=== PATIENT | male | born 1975 | race Caucasian/White ===

== ENCOUNTER 2016-12-18 05:46 | Emergency (ER) | payer MEDICAID ==
--- NOTE | 2016-12-18 05:52 | EDPHY ---
H & P Time Seen by Provider: 12/18/16 05:49 HPI/ROS: Chief Complaint: Alcohol intoxication, vomiting HPI: 41-year-old [place] Patient passed out after vomiting. Was unable to ambulate on their own. Patient brought in by EMS for further evaluation. No obvious signs of trauma per EMS. Remainder of history is unobtainable secondary to the patient's intoxication. ROS: Unobtainable secondary to the patient's intoxication PMH: Bipolar disorder Medications: Noncompliant Allergies: Unknown Social History: Positive for alcohol Family History: non-contributory Physical Exam: Gen: Somnolent, responds to painful stimuli, maintaining airway, smells of alcohol and emesis HEENT: Atraumatic Nose: no epistaxis or deformity Eyes: PERRLA, EOMI Mouth: Moist mucosa Neck: Supple, no step-offs or deformity Chest: Atraumatic, lungs clear to auscultation Heart: S1, S2 normal, no murmur Abd: Soft, non-tender, no guarding Back: Atraumatic Ext: no edema, atraumatic Skin: no rash Neuro: Sensation grossly intact, Strength 5/5 in bilateral upper and lower extremities - Medical/Surgical History Hx Asthma: No Hx Chronic Respiratory Disease: No Hx Diabetes: No Hx Cardiac Disease: No Hx Renal Disease: No Hx Cirrhosis: No Hx Alcoholism: Yes Hx HIV/AIDS: No Hx Splenectomy or Spleen Trauma: No Other PMH: ETOH ABUSE, BIPOLAR, schizophrenia, add, depression, chronic back pain, hep c - Social History Smoking Status: Current every day smoker Allergies/Adverse Reactions: quetiapine fumarate [From Seroquel] Allergy (Verified 06/24/16 03:22) trazodone Allergy (Verified 06/24/16 03:22) Home Medications: Medication Instructions Recorded clonAZEPAM [Klonopin] 1 mg PO 03/09/16 Acetaminophen [Arthritis Pain 1,300 mg PO TID PRN #30 tablet.er 04/16/16 Relief] Ibuprofen [Motrin (*)] 800 mg PO TID #21 tab 04/16/16 GABAPENTIN 06/24/16 [place] Carbonate 06/24/16 Risperidone 06/24/16 Medical Decision Making ED Course/Re-evaluation: Patient is now awake and appropriate. Ambulating unassisted to the bathroom. No current complaints. No further vomiting. Medically cleared for the [facility] Departure - Departure Disposition: Home, Routine, Self-Care Clinical Impression: Alcoholic intoxication Condition: Good Instructions: Alcohol Intoxication (ED) Additional Instructions: Please avoid binge drinking alcohol. Referrals: Patient,NotPresent [Primary Care Provider] - As per Instructions
[2016-12-18 05:56] VITALS: BP 110/81; PULSE 91; RESP 18; TEMP 97.9; O2SAT 94
== END 2016-12-18 06:00 | disposition home or self-care (01) ==
LOC: EDUNIT#
DX: F10.129 Alcohol abuse with intoxication, unspecified (principal); F17.200 Nicotine dependence, unspecified, uncomplicated

== ENCOUNTER 2016-12-29 20:39 | Emergency (ER) | payer MEDICAID ==
[2016-12-29 20:49] VITALS: BP 113/73; PULSE 85; RESP 18; TEMP 98.4; O2SAT 97
--- NOTE | 2016-12-29 21:28 | EDPHY ---
H & P Time Seen by Provider: 12/29/16 21:24 HPI/ROS: CHIEF COMPLAINT: Alcohol intoxication HISTORY OF PRESENT ILLNESS: This patient is a 41-year-old male with history of alcohol abuse who presents to the Emergency Department via [facility] and EMS under [facility] hold for acute alcohol intoxication. He admits to drinking excessively and smoking marijuana tonight. He reports nausea but has no other complaints. He denies recent infection or cough, cold, or fever. No additional pertinent medical history. REVIEW OF SYSTEMS: Constitutional: No fever Eyes: No drainage ENT: No sore throat Respiratory: No cough, no shortness of breath Cardiac: No chest pain Gastrointestinal: +nausea, no vomiting, no abdominal pain Genitourinary: no dysuria Musculoskeletal: No extremity injury or pain Skin: No rash Neurological: No headache Psychiatric: depression Past Medical/Surgical History: Alcohol abuse. Social History: Smokes daily. History of alcohol abuse. Smoking Status: Current every day smoker Physical Exam: General Appearance: Alert, intoxicated, slurred speech Eyes: Pupils equal and round, no conjunctival pallor or injection ENT, Mouth: Mucous membranes moist Neck: Normal inspection Respiratory: Lungs are clear to auscultation Cardiovascular: Regular rate and rhythm Gastrointestinal: Abdomen is soft and non- tender Neurological: A&O, nonfocal, steady gait Skin: Warm and dry Extremities: Normal inspection Psychiatric: Flat affect Constitutional: Initial Vital Signs Temperature (C) 36.9 C 12/29/16 20:47 Heart Rate 85 12/29/16 20:47 Respiratory Rate 18 12/29/16 20:47 Blood Pressure 113/73 12/29/16 20:47 O2 Sat (%) 97 12/29/16 20:47 O2 Delivery Mode Room Air Allergies/Adverse Reactions: No Known Allergies Allergy (Unverified 12/29/16 20:49) Home Medications: Medication Instructions Recorded clonAZEPAM [Klonopin] 1 mg PO 03/09/16 Acetaminophen [Arthritis Pain 1,300 mg PO TID PRN #30 tablet.er 04/16/16 Relief] Ibuprofen [Motrin (*)] 800 mg PO TID #21 tab 04/16/16 GABAPENTIN 06/24/16 [place] Carbonate 06/24/16 Risperidone 06/24/16 Risperidone 12/18/16 Seroquel 12/18/16 traZODone 12/18/16 Medical Decision Making ED Course/Re-evaluation: 41-year-old male with history of alcohol abuse presents acutely intoxicated under [facility] hold. He has no significant complaints. He has a normal exam and is able to ambulate appropriately. At this time, I feel that he is appropriate for discharge directly to the [facility]. He is given customary return precautions and will be discharged home in good conditions. Departure - Departure Disposition: Home, Routine, Self-Care Clinical Impression: Alcohol intoxication Condition: Good Instructions: Abuse of Alcohol (ED) Additional Instructions: Go directly to the [facility]. Return to the Emergency Department with uncontrollable vomiting, seizure, loss of consciousness, or for other serious concerns. Referrals: [facility] Detox 24 Hours [Outside] - As per Instructions Report Scribed for: Dalia Strong Report Scribed by: Radha Yancey Date of Report: 12/29/16 Time of Report: 21:25 Physician Review and Approval Statement: 12/29/16 21:25 Portions of this note were transcribed by a biomedical specialist. I personally performed a history, physical exam, medical decision making, and confirmed accuracy of information the transcribed note.
== END 2016-12-29 21:40 | disposition home or self-care (01) ==
LOC: EDUNIT#
DX: F10.129 Alcohol abuse with intoxication, unspecified (principal); F17.200 Nicotine dependence, unspecified, uncomplicated

== ENCOUNTER 2017-02-09 11:43 | Inpatient (IN) | payer MEDICAID ==
[2017-02-09] MEDS ORDERED: NS 1,000 ML IV ONE (12:04)
[2017-02-09] MEDS ORDERED: OXYCODONE/APAP 5/325 TAB PO ONE (12:08)
--- NOTE | 2017-02-09 14:21 | EDPHY ---
H & P Time Seen by Provider: 02/09/17 12:27 HPI/ROS: CHIEF COMPLAINT: Left ankle pain HISTORY OF PRESENT ILLNESS: 41-year-old homeless male presents to the emergency department by ambulance after he jumped off a ladder approximately 4 feet and twisted his left ankle. He complains of isolated pain to the left ankle. He was unable to walk and therefore ambulance was called for him. He complains of isolated pain to the left ankle. He admits to drinking alcohol today. He denies hitting his head or losing consciousness. Denies pain in his left knee or hip. Denies symptoms in the right lower extremity or upper extremities bilaterally. REVIEW OF SYSTEMS: Constitutional: No fever, no chills. Eyes: No double or blurry vision. ENT: No sore throat. Respiratory: No cough, no shortness of breath. Cardiac: No chest pain. Gastrointestinal: No abdominal pain, vomiting or diarrhea. Genitourinary: No dysuria. Musculoskeletal: No neck or back pain. Skin: No rashes. Neurological: No headache. Past Medical/Surgical History: Alcoholism, alcohol withdrawal seizures Social History: Homeless Smoking Status: Current every day smoker Physical Exam: General Appearance: Alert, no distress. No visible signs of trauma to his head. He does smell of alcohol. Eyes: Pupils equal and round. Extraocular motions are all intact. ENT: Mouth: Mucous membranes moist. Respiratory: No wheezing, rhonchi, or rales, lungs are clear to auscultation. Cardiovascular: Regular rate and rhythm. Gastrointestinal: Abdomen is soft and nontender, no masses, no rebound or guarding, bowel sounds normal. Neurological: Alert and oriented x 3, cranial nerves II through XII grossly intact Skin: Warm and dry, no rashes. Musculoskeletal: Nontender to palpate along the cervical, thoracic or lumbar spine. Neck is supple. Extremities: Swelling noted to the left ankle. Tenderness with palpation both to the medial and lateral aspect of the left ankle. Limited dorsi and plantar flexion secondary to pain. Calf is nontender. Normal sensation to light touch with normal 2 point discrimination. Strong dorsalis pedis pulse on the dorsal aspect of the left foot. No signs of puncture wound, laceration or signs of open fracture. Psychiatric: Patient is oriented X 3, there is no agitation. Constitutional: Initial Vital Signs Temperature (C) 37 C 02/09/17 11:47 Heart Rate 97 08/05/17 11:47 Blood Pressure 110/83 H 02/09/17 11:47 O2 Sat (%) 95 02/09/17 11:47 O2 Delivery Mode Room Air Allergies/Adverse Reactions: No Known Allergies Allergy (Unverified 12/29/16 20:49) Home Medications: Medication Instructions Recorded QUEtiapine FUMARATE [Seroquel 50 50 mg PO HS 02/09/17 mg (*)] Medical Decision Making - Diagnostics Imaging Results: Imaging Impressions Ankle X-Ray 02/09/17 12:26 Impression: Comminuted and displaced intra-articular distal left tibial fracture. Extremity CT 02/09/17 13:31 Impression: Complex bimalleolar ankle fracture with three-dimensional reformations performed for surgical planning. Imaging: I viewed and interpreted images myself ED Course/Re-evaluation: 41-year-old homeless male presents to the emergency department with left ankle injury. X-rays reveal distal tibial fracture which is likely intra-articular. I spoke with Dr. Prashant Chowdhury, on-call orthopedic surgeon, who reviewed the patient's films and requested CT scan of his left ankle. The patient is homeless and will have a great deal of difficulty nonweightbearing and management as an outpatient with this injury. I spoke with the hospitalist the patient will be admitted to the medical-surgical floor. Dr. Prashant Chowdhury did not feel that he would have surgery today. The patient was able to eat and drink in the emergency department and will be NPO after midnight. Patient does have a history of alcohol withdrawal related seizures. He is acutely intoxicated with alcohol. Dr. Prashant Chowdhury also felt the patient would require assistance from case management for arranging placement for nonweightbearing and wound care post surgery. The case was discussed with Dr. Dalia Strong, supervising physician, who did not directly evaluate the patient but agrees with treatment and plan. Differential Diagnosis: Including but not limited to fracture, dislocation, contusion, sprain - Data Points Laboratory Results: Laboratory Results 02/09/17 15:07 02/09/17 15:07 02/09/17 02/09/17 15:07 15:07 WBC 8.92 10^3/uL 10^3/uL (3.80-9.50) RBC 4.70 10^6/uL 10^6/uL (4.40-6.38) Hgb 15.1 g/dL g/dL (13.7-17.5) Hct 43.6 % % (40.0-51.0) MCV 92.8 fL fL (81.5-99.8) MCH 32.1 pg pg (27.9-34.1) MCHC 34.6 g/dL g/dL (32.4-36.7) RDW 15.4 % H % (11.5-15.2) Plt Count 301 10^3/uL 10^3/uL (150-400) MPV 9.8 fL fL (8.7-11.7) Neut % (Auto) 64.4 % % (39.3-74.2) Lymph % (Auto) 28.1 % % (15.0-45.0) Green % (Auto) 6.1 % % (4.5-13.0) Eos % (Auto) 0.4 % L % (0.6-7.6) Baso % (Auto) 0.6 % % (0.3-1.7) Nucleat RBC Rel Count 0.0 % % (0.0-0.2) Absolute Neuts (auto) 5.74 10^3/uL 10^3/uL (1.70-6.50) Absolute Lymphs (auto) 2.51 10^3/uL 10^3/uL (1.00-3.00) Absolute Monos (auto) 0.54 10^3/uL 10^3/uL (0.30-0.80) Absolute Eos (auto) 0.04 10^3/uL 10^3/uL (0.03-0.40) Absolute Basos (auto) 0.05 10^3/uL 10^3/uL (0.02-0.10) Absolute Nucleated RBC 0.00 10^3/uL 10^3/uL (0-0.01) Immature Gran % 0.4 % % (0.0-1.1) Immature Gran # 0.04 10^3/uL 10^3/uL (0.00-0.10) Sodium 146 mEq/L H mEq/L (134-144) Potassium 3.9 mEq/L mEq/L (3.5-5.2) Chloride 105 mEq/L mEq/L (97-110) Carbon Dioxide 22 mEq/l mEq/l (22-31) Anion Gap 19 mEq/L H mEq/L (8-16) BUN 6 mg/dL L mg/dL (7-23) Creatinine 0.6 mg/dL L mg/dL (0.7-1.3) Estimated GFR > 60 Glucose 136 mg/dL H mg/dL (70-100) Calcium 8.8 mg/dL mg/dL (8.5-10.4) Ethyl Alcohol 291 mg/dL H mg/dL (0-10) Medications Given: Discontinued Medications Morphine Sulfate (Morphine) 4 mg IVP EDNOW ONE Stop: 02/09/17 12:05 Last Admin: 02/09/17 12:26 Dose: Not Given Oxycodone/Acetaminophen (Percocet 5/325) 2 tab PO EDNOW ONE Stop: 02/09/17 12:09 Last Admin: 02/09/17 12:12 Dose: 2 tab Departure - Departure Disposition: [facility] Acute Clinical Impression: Closed left ankle fracture Qualifiers: Encounter type: initial encounter Qualified Code(s): S82.892A - Other fracture of left lower leg, initial encounter for closed fracture Condition: Good
[2017-02-09] MEDS ORDERED: ZOLPIDEM TARTRATE 5 MG TAB PO PRN (15:11)
[2017-02-09] MEDS ORDERED: ONDANSETRON 4 MG/2 ML VIAL IVP PRN (15:11)
--- NOTE | 2017-02-09 15:19 | PDGENHP ---
History and Physical History and Physical: CC:Ankle pain after fall HISTORY: The patient comes into the ER today complaining of left ankle pain after an injury. He says he was standing on an embankment about 4 feet high and jumped off that twisting his left ankle with immediate severe pain unable to stand or walk on it. There is no other injury. He has had x-rays done here in the ER today showing a bimalleolar distal tibial fracture. Prior to this the patient states he has mostly been feeling well although he did have some vomiting the last couple of days without fevers or abdominal pain and his bowels have been normal. is notable that the patient is homeless and is alcoholic. He says he drinks a gal of vodka per day plus few small liquors. This is chronic for him. His last drink was earlier today. He uses occasional marijuana and occasional math by insufflation, no history of narcotic use or intravenous drug use. He does have a history of mental health disease and has previously been chronically prescribed newer generation antipsychotic medicines as well as benzodiazepine. He says he last had Seroquel in early January and his other medicines several weeks before that. He states he feels that his lungs he has an of alcohol does not usually feel like he needs his medications. He does smoke cigarettes as well. 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 Substance abuse as above Has worked with [facility] but has not seen them recently. MEDICATIONS: Medications as above, no medicine allergies PHYSICAL EXAMINATION: Vital Signs: stable without fever Examination: General: alert, oriented, good mentation, relaxed, no tremor or confusion or anxiety with his left leg in splint from toes to above the knee ; he has good circulation in the toes and normal sensation, moves his toes normally No sign of other injuries Skin: warm, dry, good color, no rash HEENT: normal Neck: no mass or jvd Resps: relaxed Lungs: clear breath sounds Heart: regular, no murmur Abdomen: soft, nondistended, nontender, +BS, no mass Upper Extremities: normal Neurologic: normal speech/language, normal instructor psychiatric aide, no focal weakness IV site: looks normal LABORATORY DATA: laboratory studies have been ordered in the ER her still pending RADIOLOGY STUDIES: I reviewed x-ray images of his left ankle which show comminuted distal tibial fracture on the left ASSESSMENT: -Comminuted bimalleolar left ankle fracture will require surgical repair -Alcoholism. At this time the patient is not withdrawing and it would be best I think at this time to avoid alcohol withdrawal as I do not think he will be able to stop drinking. Will continue giving him some alcohol and some benzodiazepine here as well as thiamine replacement. -Substance abuse with occasional meth and marijuana but no IV drug use -Mental health disorder, I suspect is probably schizophrenia but I do not have records here at this time PLANS: - admission hospital -Orthopedics consultation -DVT prophylaxis -He is agreeing to resume his Seroquel at this time -Nicotine patch -Electrolyte protocols -Will continue some alcohol on some Librium here in the hospital and try and avoid alcohol withdrawal for him as I do not think he is likely be able stop drinking and I expect any withdrawal would be severe and high risk I have reviewed the patient's case in detail with Anabela Carson of the ER
[2017-02-09 15:26] LABS: % IMMATURE GRANULYOCYTES 0.4 % (0.0-1.1); ABSOLUTE IMMATURE GRANULOCYTES 0.04 10^3/uL (0.00-0.10); ADD DIFF? NO; ADD MORPH? NO; ADD SCAN? NO; ATYPICAL LYMPHOCYTE FLAG 0 (0-99); FRAGMENT RBC FLAG 0 (0-99); HEMATOCRIT 43.6 % (40.0-51.0); HEMOGLOBIN 15.1 g/dL (13.7-17.5); LEFT SHIFT FLG 0 (0-99); LIPEMIA HEMOLYSIS FLAG 90 (0-99); MEAN CELL HEMOGLOBIN 32.1 pg (27.9-34.1); MEAN CELL HEMOGLOBIN CONCENTR. 34.6 g/dL (32.4-36.7); MEAN CELL VOLUME 92.8 fL (81.5-99.8); MEAN PLATELET VOLUME 9.8 fL (8.7-11.7); PLATELET CLUMPS FLAG 10 (0-99); PLATELET COUNT 301 10^3/uL (150-400); RED CELL DISTRIBUTION WIDTH 15.4 % (11.5-15.2)
[2017-02-09 15:29] LABS: ANION GAP 19 mEq/L (8-16); CALCIUM 8.8 mg/dL (8.5-10.4); CARBON DIOXIDE 22 mEq/l (22-31); CHLORIDE 105 mEq/L (97-110); CREATININE 0.6 mg/dL (0.7-1.3); ETHANOL SERUM 291 mg/dL (0-10); GLOMERULAR FILTRATION RATE > 60; GLUCOSE 136 mg/dL (70-100); POTASSIUM 3.9 mEq/L (3.5-5.2); SODIUM 146 mEq/L (134-144)
[2017-02-09] MEDS ORDERED: PROTOCOL MAGNESIUM 1 DOSE IV PRN (15:34)
[2017-02-09] MEDS ORDERED: PROTOCOL POTASSIUM 1 DOSE MISC PRN (15:34)
[2017-02-09] MEDS: THIAMINE HCL 100 MG TAB PO SCH (16:04)
[2017-02-09] MEDS: NICOTINE 21 MG/24 HR PATCH TD SCH (16:04)
[2017-02-09] MEDS: VODKA 50 ML BOTTLE PO SCH ×2 (16:05→21:49)
[2017-02-09] MEDS: ACETAMINOPHEN 325 MG TAB PO PRN (17:08)
[2017-02-09] MEDS: oxyCODONE IR 5 MG TAB PO PRN ×2 (17:09→23:07)
[2017-02-09 18:28] LABS: POTASSIUM 4.2 mEq/L (3.5-5.2)
--- NOTE | 2017-02-09 19:59 | GCON ---
[f rep st] CONSULTATION DATE OF CONSULTATION: 02/09/2017 REASON FOR CONSULTATION: Left ankle injury. HISTORY OF PRESENT ILLNESS: The patient is a 41-year-old, who jumped down approximately 4 feet land ing on his left ankle. He noted pain and inability to ambulate secondary to his pain. PHYSICAL EXAMINATION: He has moderate swelling in his left ankle. He is able to gently flex and ex tend. His distal neurovascular exam was grossly intact. IMAGING STUDIES: AP and lateral radiographs of his ankle as well as a CT scan show a distal tibial pilon fracture. ASSESSMENT: Left tibial pilon fracture. PLAN: Based on the displaced intra-articular nature of the ankle, it is recommended that optimal tr eatment would consist of surgical management consisting of open reduction, internal fixation. Curre ntly the patient is homeless and at the time of presentation inebriated. There is significant kandi rn that if the patient does not have an adequate housing situation post surgery, the risk of infecti on, potentially resulting in a below-knee amputation is significant. Additionally, nonoperative man agement with resultant ankle arthritis and subsequent salvage with an ankle fusion would be a better result than a below-knee amputation. As soon as the patient's social situation can be confirmed to be "stable" and he will be able to be compliant with postoperative regimen, operative treatment con sisting of open reduction, internal fixation will be recommended. /[id number]/MODL
[2017-02-09] MEDS: QUEtiapine FUMARATE 50 MG TAB PO SCH (20:26)
[2017-02-09] MEDS ORDERED: QUEtiapine FUMARATE 100 MG TAB PO SCH (21:00)
[2017-02-10 05:35] LABS: CHLORIDE 105 mEq/L (97-110)
[2017-02-10 05:37] LABS: ANION GAP 11 mEq/L (8-16); CALCIUM 8.5 mg/dL (8.5-10.4); CARBON DIOXIDE 24 mEq/l (22-31); CREATININE 0.6 mg/dL (0.7-1.3); GLOMERULAR FILTRATION RATE > 60; GLUCOSE 79 mg/dL (70-100); MAGNESIUM 1.6 mg/dL (1.6-2.3); POTASSIUM 3.9 mEq/L (3.5-5.2); SODIUM 140 mEq/L (134-144)
[2017-02-10] MEDS: THIAMINE HCL 100 MG TAB PO SCH (07:43)
[2017-02-10] MEDS: oxyCODONE IR 5 MG TAB PO PRN ×4 (07:43→20:35)
[2017-02-10] MEDS: ACETAMINOPHEN 325 MG TAB PO PRN ×3 (07:43→22:03)
[2017-02-10] MEDS: ENOXAPARIN 40 MG/0.4 ML SYR SC SCH (07:44)
[2017-02-10] MEDS: NICOTINE 21 MG/24 HR PATCH TD SCH (07:44)
[2017-02-10] MEDS ORDERED: POTASSIUM CL 10 MEQ TAB PO ONE (08:05)
[2017-02-10] MEDS: VODKA 50 ML BOTTLE PO SCH ×3 (08:43→22:03)
--- NOTE | 2017-02-10 09:08 | HOSPPROG ---
Hospitalist Progress Note Assessment/Plan: 1. L tibial pilon fracture -appreciate Dr Chowdhury's assistance -needs ORIF but stable envt to recuperate -if no ORIF, still needs stable envt -will review options with SW/CM, ? SNF vs NH vs inpt psych or phys med rehab 2. Alcoholism. -given low dose alcohol to prevent withdrawal -need to stop EtOH in prep for surgery, recuperation -will need mental health support, supportive envt- see above 3. Substance abuse with occasional meth and marijuana but no IV drug use 4. Mental health disorder -possible transfer to inpatient psych as an option for post op time? DVT prophy- lovenox (will need to stop prior to ORIF) PCP- has seen [facility], but not recently Dispo- > 2 mdnts as still awaiting possible surgical repair Subjective: Says still in significant pain. Denies n/v/d/cp/sob. Objective: Vital Signs Temp Pulse Resp BP Pulse Ox 98.2 F 78 18 128/88 H 98 02/10/17 07:27 02/10/17 07:27 02/10/17 07:27 02/10/17 07:27 02/10/17 07:27 Laboratory Results 02/10/17 05:06 02/08/17 02/09/17 02/10/17 11:59 11:59 11:59 Intake Total 450 Output Total 1050 Balance -600 - Time Spent With Patient Time Spent with Patient: greater than 35 minutes Time Spent with Patient: Greater than 35 minutes spent on this patients care, greater than 50% of time spent counseling, educating, and coordinating care regarding the above mentioned plan. - Physical Exam Constitutional: no apparent distress, appears nourished, uncomfortable Eyes: PERRL, anicteric sclera, EOMI Ears, Nose, Mouth, Throat: moist mucous membranes, hearing normal Cardiovascular: regular rate and rhythym, no murmur, rub, or gallop Respiratory: no respiratory distress, no rales or rhonchi, clear to auscultation Skin: warm, normal color Musculoskeletal: other (LLE in splint, cap refill < 2 secs) Psychiatric: interacting appropriately, not anxious, not encephalopathic ICD10 Worksheet Patient Problems: Problems Problem Status Onset Closed left ankle fracture Acute Alcoholic intoxication Acute
--- NOTE | 2017-02-10 13:39 | SOAPPROG ---
SOAP Progress Note Assessment/Plan: Assessment: L tibial pilon fx Pain in ankle Kristina po Overall better appearance today Splint intact, appropriate fit Toes 1-5 with good cap refill. +DF/PF Plan: Fx best treated with ORIF. Patient needs post op dispo that will allow for safe healing environment. I fthis can be arranged, will plan ORIF on Saturday02/10/17 13:36 Objective: Vital Signs Temp Pulse Resp BP Pulse Ox 36.8 C 84 16 117/71 94 02/10/17 11:40 02/10/17 11:40 02/10/17 11:40 02/10/17 11:40 02/10/17 11:40 Laboratory Results 02/10/17 05:06 02/09/17 02/10/17 02/11/17 05:59 05:59 05:59 Intake Total 450 Output Total 1050 350 Balance -600 -350 ICD10 Worksheet Patient Problems: Problems Problem Status Onset Closed left ankle fracture Acute Alcoholic intoxication Acute
[2017-02-10] MEDS ORDERED: MAGNESIUM SULF 1 GM/DEXTROSE 100 ML IV ONE (15:03)
[2017-02-10] MEDS: chlordiazePOXIDE 25 MG CAP PO PRN ×2 (16:46→22:03)
[2017-02-10 18:47] LABS: POTASSIUM 4.2 mEq/L (3.5-5.2)
[2017-02-10] MEDS: QUEtiapine FUMARATE 50 MG TAB PO SCH (22:03)
[2017-02-11 05:31] LABS: MAGNESIUM 2.1 mg/dL (1.6-2.3); POTASSIUM 4.7 mEq/L (3.5-5.2)
[2017-02-11] MEDS ORDERED: MAG HYDROX/AL HYDROX/SIMETH 30 ML UDCUP PO PRN (06:48)
[2017-02-11] MEDS ORDERED: PROMETHAZINE HCL 25 MG TAB PO PRN (06:48)
[2017-02-11] MEDS ORDERED: MAGNESIUM SULF 2 GM/WATER 50 ML IV ONE (06:48)
[2017-02-11] MEDS: ENOXAPARIN 40 MG/0.4 ML SYR SC SCH (08:34)
[2017-02-11] MEDS: THIAMINE HCL 100 MG TAB PO SCH (08:34)
[2017-02-11] MEDS: MULTIVITAMINS 1 EACH TAB PO SCH (08:34)
[2017-02-11] MEDS: FOLIC ACID 1 MG TAB PO SCH (08:34)
[2017-02-11] MEDS: NICOTINE 21 MG/24 HR PATCH TD SCH (08:35)
[2017-02-11] MEDS: LORazepam 1 MG TAB PO SCH ×4 (08:49→23:39)
[2017-02-11] MEDS: oxyCODONE IR 5 MG TAB PO PRN ×3 (08:50→23:39)
[2017-02-11] MEDS ORDERED: DIAZEPAM 10 MG TAB PO ONE (10:57)
[2017-02-11] MEDS: LORazepam 1 MG TAB PO PRN ×2 (11:19→20:30)
--- NOTE | 2017-02-11 11:25 | HOSPPROG ---
Hospitalist Progress Note Assessment/Plan: 1. L tibial pilon fracture -appreciate Dr Chowdhury's assistance -needs ORIF but stable envt to recuperate -if no ORIF, still needs stable envt -discussed with SW/CM 2. Alcoholism. -given low dose alcohol to prevent withdrawal initially during this stay -need to stop EtOH in prep for surgery, recuperation -he initially seemed OK with this plan, but becoming more aggressive, has bipolar which he medicates 'with whatever he can', admits to violent tendencies , and says he 'may hurt someone' if he 'doesn't get a f--ing drink and a cigarette' -placed on M1 hold and transfer to ICU, Dr Salcido will assume care -will need mental health support, supportive envt during recuperation 3. Substance abuse with occasional meth and marijuana -no utox was done at admission, was acutely drunk at admission -see above 4. Mental health disorder -possible transfer to inpatient psych after medically cleared (+- surgery on ankle) DVT prophy- lovenox (will need to stop prior to ORIF) PCP- has seen [facility], but not recently Dispo- > 2 mdnts as still awaiting possible surgical repair Subjective: Very upset about stopping etoh. Explained need to detox in anticipation of surgery. Discussed ativan dosing. Seemed OK with plan, but then became very agitated, yelling, cursing, threatening to leave later in the morning. Objective: Vital Signs Temp Pulse Resp BP Pulse Ox 98.3 F 92 12 125/80 H 94 02/11/17 07:42 02/11/17 07:42 02/11/17 07:42 02/11/17 07:42 02/11/17 07:42 Laboratory Results 02/11/17 04:29 02/09/17 02/10/17 02/11/17 11:59 11:59 11:59 Intake Total 450 500 Output Total 1400 8995 Balance -335 -8900 - Time Spent With Patient Time Spent with Patient: greater than 35 minutes Time Spent with Patient: Greater than 35 minutes spent on this patients care, greater than 50% of time spent counseling, educating, and coordinating care regarding the above mentioned plan. - Pending Discharge Pending Discharge Within 24 Hours: No Pending Discharge Within 48 Hours: No - Physical Exam Constitutional: chronically ill appearing, unkempt Cardiovascular: regular rate and rhythym, no murmur, rub, or gallop Respiratory: no respiratory distress, no rales or rhonchi, clear to auscultation Musculoskeletal: other (L lower leg in splint) Psychiatric: agitated, poor insight, poor judgement, poor memory ICD10 Worksheet Patient Problems: Problems Problem Status Onset Closed left ankle fracture Acute Alcoholic intoxication Acute
[2017-02-11] MEDS ORDERED: DIAZEPAM 5 MG TAB PO ONE (11:30)
[2017-02-11] MEDS ORDERED: QUEtiapine FUMARATE 50 MG TAB PO ONE (11:46)
[2017-02-11] MEDS: LORazepam 2 MG/ML INJ IVP PRN (11:57)
[2017-02-11] MEDS: clonazePAM 1 MG TAB PO SCH ×2 (12:11→19:52)
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
[2017-02-11] MEDS: QUEtiapine FUMARATE 50 MG TAB PO SCH (20:02)
[2017-02-12] MEDS: LORazepam 1 MG TAB PO PRN ×2 (03:20→08:27)
[2017-02-12] MEDS: oxyCODONE IR 5 MG TAB PO PRN ×4 (03:20→21:29)
[2017-02-12 05:47] LABS: % IMMATURE GRANULYOCYTES 0.2 % (0.0-1.1); ABSOLUTE IMMATURE GRANULOCYTES 0.01 10^3/uL (0.00-0.10); ADD DIFF? NO; ADD MORPH? NO; ADD SCAN? NO; ATYPICAL LYMPHOCYTE FLAG 20 (0-99); FRAGMENT RBC FLAG 0 (0-99); HEMATOCRIT 40.4 % (40.0-51.0); HEMOGLOBIN 14.1 g/dL (13.7-17.5); LEFT SHIFT FLG 0 (0-99); LIPEMIA HEMOLYSIS FLAG 90 (0-99); MEAN CELL HEMOGLOBIN 32.2 pg (27.9-34.1); MEAN CELL HEMOGLOBIN CONCENTR. 34.9 g/dL (32.4-36.7); MEAN CELL VOLUME 92.2 fL (81.5-99.8); PLATELET CLUMPS FLAG 0 (0-99); PLATELET COUNT 200 10^3/uL (150-400); RED BLOOD CELL COUNT 4.38 10^6/uL (4.40-6.38); RED CELL DISTRIBUTION WIDTH 14.3 % (11.5-15.2)
[2017-02-12 06:01] LABS: ANION GAP 10 mEq/L (8-16); CALCIUM 9.1 mg/dL (8.5-10.4); CARBON DIOXIDE 24 mEq/l (22-31); CHLORIDE 101 mEq/L (97-110); CREATININE 0.6 mg/dL (0.7-1.3); GLOMERULAR FILTRATION RATE > 60; GLUCOSE 97 mg/dL (70-100); MAGNESIUM 1.7 mg/dL (1.6-2.3); POTASSIUM 4.3 mEq/L (3.5-5.2); SODIUM 135 mEq/L (134-144)
[2017-02-12] MEDS: LORazepam 1 MG TAB PO SCH ×4 (06:20→19:57)
[2017-02-12] MEDS: ENOXAPARIN 40 MG/0.4 ML SYR SC SCH (08:19)
[2017-02-12] MEDS: NICOTINE 21 MG/24 HR PATCH TD SCH (08:26)
[2017-02-12] MEDS: THIAMINE HCL 100 MG TAB PO SCH (08:27)
[2017-02-12] MEDS: MULTIVITAMINS 1 EACH TAB PO SCH (08:27)
[2017-02-12] MEDS: FOLIC ACID 1 MG TAB PO SCH (08:27)
[2017-02-12] MEDS: clonazePAM 1 MG TAB PO SCH ×2 (08:27→19:56)
[2017-02-12] MEDS ORDERED: HALOPERIDOL LACT 5 MG/ML INJ IVP PRN (09:37)
[2017-02-12] MEDS ORDERED: MAGNESIUM SULF 1 GM/DEXTROSE 100 ML IV ONE (09:37)
--- NOTE | 2017-02-12 09:44 | PDINTPN ---
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 Alcohol abuse/withdrawal: Improved over the last 24 hours with clonazepam and Seroquel, and some IV Ativan. He has expressed an interest in stopping alcohol abuse. Tobacco abuse: Withdrawal symptoms improved with increased nicotine patch Plan: Decreased clonazepam and increased p.r.n. Ativan. NPO for surgery today. Begin to work on discharge planning to arrange for safe environment for him to try to withdraw from alcohol and recover from ankle surgery. 02/12/17 09:44 Subjective: Patient slept well last night. Still feels some alcohol withdrawal, with tremors. Complains of pain in left ankle. Objective: Vital Signs Temp Pulse Resp BP Pulse Ox 36.8 C 88 16 106/65 96 02/12/17 04:00 02/12/17 08:00 02/12/17 08:00 02/12/17 08:00 02/12/17 08:00 Laboratory Results 02/12/17 05:30 02/12/17 05:30 02/11/17 02/12/17 02/13/17 05:59 05:59 05:59 Intake Total 500 500 Output Total 2100 700 Balance -1600 -200 Physical Exam - Physical Exam General Appearance: alert, no apparent distress EENT: normal ENT inspection Neck: normal inspection Respiratory: lungs clear, normal breath sounds Cardiac/Chest: regular rate, rhythm, No edema Abdomen: normal bowel sounds, non-tender Skin: normal color, warm/dry Extremities: normal inspection Neuro/Psych: alert, other (Mild tremor.), No normal mood/affect (A bit sedated) , No motor weakness ICD10 Worksheet Patient Problems: Problems Problem Status Onset Closed left ankle fracture Acute Alcoholic intoxication Acute
[2017-02-12] MEDS: LORazepam 2 MG/ML INJ IVP PRN ×3 (11:33→21:27)
[2017-02-12] MEDS ORDERED: MIDAZOLAM 2 MG/2 ML VIAL ONE (12:49)
[2017-02-12] MEDS ORDERED: BUPIVACAINE 0.5% 30 ML SDV ONE (14:01)
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
[2017-02-12] MEDS ORDERED: OXYCODONE/APAP 5/325 TAB PO PRN (14:40)
[2017-02-12] MEDS ORDERED: ONDANSETRON 4 MG/2 ML VIAL IVP PRN (14:40)
[2017-02-12] MEDS ORDERED: HYDROmorphONE/DILAUDID 1 MG/ML SYR IVP PRN ×2 (14:40)
[2017-02-12] MEDS ORDERED: HYDROCODONE/APAP 5/325 TAB PO PRN (14:40)
[2017-02-12] MEDS ORDERED: fentaNYL 100 MCG/2 ML INJ IVP PRN ×2 (14:40)
[2017-02-12] MEDS ORDERED: NALOXONE HCL 0.4 MG/ML INJ IVP PRN (14:40)
--- NOTE | 2017-02-12 14:45 | PDANEPAE ---
ANE History of Present Illness Left Ankle FX ORIF ANE Past Medical History - Pulmonary History Hx Oxygen in Use at Home: No Hx Sleep Apnea: No - Endocrine History Hx Diabetes: No - Chronic Pain History Chronic Pain: Yes ANE Patient History - Allergies Allergies/Adverse Reactions: No Known Allergies Allergy (Unverified 12/29/16 20:49) - Home Medications Home Medications: QUEtiapine FUMARATE [Seroquel 50 mg (*)] 50 mg PO HS 02/09/17 [Last Taken ] - Smoking Hx Smoking Status: Current every day smoker ANE Labs/Vital Signs - Labs Result Diagrams: 02/12/17 05:30 02/12/17 05:30 - Vital Signs Blood Pressure: 108/76 Heart Rate: 88 Respiratory Rate: 16 O2 Sat (%): 97 Height: 182.88 cm Weight: 74.843 kg ANE Physical Exam - Airway Neck exam: FROM Mallampati Score: Class 2 Mouth exam: poor dentition - Pulmonary Pulmonary: clear to auscultation - Cardiovascular Cardiovascular: regular rate and rhythym - ASA Status ASA Status: II ANE Anesthesia Plan Anesthesia Plan: GA w LMA
--- NOTE | 2017-02-12 15:36 | POSTOPPROG ---
Post Op Note Date of Operation: 02/12/17 Surgeon: Prashant Chowdhury Anesthesia: GET(General Endotracheal) Pre-op Diagnosis: L Tibial Pilon Fx Post-op Diagnosis: Same Procedure: ORIF L Tibial pilon fx Inf/Abcess present in the surg proc area at time of surgery?: No EBL: Minimal
--- NOTE | 2017-02-12 15:36 | POSTANESTH ---
Post Anesthetic Evaluation Cardiovascular Status: Normal, Stable Respiratory Status: Normal, Stable Level of Consciousness/Mental Status: Mildly Sleepy, Arousable Pain Control: Adequate, Prn Tx Ordered Nausea/Vomiting Control: Adequate, Prn Tx Ordered Complications Possibly Related to Anesthesia: None Noted
[2017-02-12] MEDS ORDERED: D5W 1/2 NS W/ 20 KCl/L 1,000 ML IV SCH (15:45)
--- NOTE | 2017-02-12 18:28 | GOP ---
[f rep st] OPERATIVE REPORT DATE OF OPERATION: 02/12/2017 SURGEON: Prashant Chowdhury MD ANESTHESIA: General. PREOPERATIVE DIAGNOSIS: Left tibial pilon fracture. POSTOPERATIVE DIAGNOSIS: Left tibial pilon fracture. PROCEDURE PERFORMED: 1. Open reduction, internal fixation, left tibial pilon fracture. 2. Intraoperative use of fluoroscopy. FINDINGS: ESTIMATED BLOOD LOSS: Negligible.lost DESCRIPTION OF PROCEDURE: Patient was brought in the operating room after IV antibiotics were admin istered. He was placed in a supine position where general anesthetic was administered. Tourniquet was placed on his left thigh, bump underneath the left hip and shoulder, and his left lower extremit y was prepped and draped in standard sterile fashion. After Giovanny wrap exsanguination, tourniquet was inflated to 250. Attention was initially directed toward the posterior fragment. Under fluoroscop ic guidance, a K-wire was inserted percutaneously at the level of the fracture site. A small incisi on was made with dissection down to the posterior aspect of the tibia and the interval between the p eroneal and flexor hallucis longus tendons. A 2.5 mm Schanz pin was inserted in the bone where the bone was "joysticked" into a more reduced position and reduced. The guide pin was advanced. Using 2 small incisions, two 3.5 mm cortical screws were placed in lag fashion in a posterior to anterior direction across the fracture site. Favorable hardware placement and reduction was achieved. Attention was then directed toward the medial malleolar fracture. A Lucian wire was placed in th e medial aspect of the medial malleolus across the fracture site. A small stab incision was made do wn to the bone. Two 3.5 mm cortical screws were placed in lag fashion in a medial to lateral direct ion, gaining favorable purchase. The fluoroscopic views confirmed favorable hardware and fracture p ositions. Attention was finally directed toward the anterior lateral fragment. While ideally, open reduction with plate stabilization would have been considered, this was not felt to be safe from a wound heali ng standpoint. Under fluoroscopic guidance, a small incision was made along the anterior lateral ti alin. A partially threaded Schanz pin was inserted and the fracture was joysticked into a more reduc ed position. Through 2 small incisions, three 3.5 mm cortical screws were placed in lag fashion acr oss the fracture site. Fluoroscopic views confirmed satisfactory reduction and hardware placement. Attention was directed towards closure. The subcutaneous tissue was closed with 3-0 Vicryl suture i n interrupted fashion, the skin was closed with 3-0 chromic suture and Dermabond. The wounds were d ressed with sterile Adaptic, 4 x 4, and Kerlix and an Giovanny. The patient was placed in a fracture gregorio t. He will be nonweightbearing on his operative extremity. DRAINS: None. COMPLICATIONS: None. /[id number]/MODL
[2017-02-12] MEDS: QUEtiapine FUMARATE 50 MG TAB PO SCH (19:58)
[2017-02-12] MEDS: ceFAZolin 2 GM/DEXTROSE 100 ML IV SCH (21:24)
[2017-02-13] MEDS: oxyCODONE IR 5 MG TAB PO PRN ×2 (00:18→04:57)
[2017-02-13] MEDS: LORazepam 1 MG TAB PO SCH ×2 (00:18→04:58)
[2017-02-13] MEDS: ceFAZolin 2 GM/DEXTROSE 100 ML IV SCH (04:57)
[2017-02-13 05:02] VITALS: PULSE 102
[2017-02-13 05:27] LABS: % IMMATURE GRANULYOCYTES 0.2 % (0.0-1.1); ABSOLUTE IMMATURE GRANULOCYTES 0.02 10^3/uL (0.00-0.10); ADD DIFF? NO; ADD MORPH? NO; ADD SCAN? NO; ATYPICAL LYMPHOCYTE FLAG 0 (0-99); FRAGMENT RBC FLAG 0 (0-99); HEMATOCRIT 39.9 % (40.0-51.0); HEMOGLOBIN 14.2 g/dL (13.7-17.5); LEFT SHIFT FLG 0 (0-99); LIPEMIA HEMOLYSIS FLAG 90 (0-99); MEAN CELL HEMOGLOBIN 32.3 pg (27.9-34.1); MEAN CELL HEMOGLOBIN CONCENTR. 35.6 g/dL (32.4-36.7); MEAN CELL VOLUME 90.9 fL (81.5-99.8); PLATELET CLUMPS FLAG 0 (0-99); PLATELET COUNT 241 10^3/uL (150-400); RED BLOOD CELL COUNT 4.39 10^6/uL (4.40-6.38); RED CELL DISTRIBUTION WIDTH 13.8 % (11.5-15.2)
[2017-02-13 05:36] LABS: ANION GAP 12 mEq/L (8-16); CALCIUM 9.5 mg/dL (8.5-10.4); CARBON DIOXIDE 24 mEq/l (22-31); CHLORIDE 96 mEq/L (97-110); CREATININE 0.7 mg/dL (0.7-1.3); GLOMERULAR FILTRATION RATE > 60; GLUCOSE 118 mg/dL (70-100); MAGNESIUM 1.9 mg/dL (1.6-2.3); POTASSIUM 4.5 mEq/L (3.5-5.2); SODIUM 132 mEq/L (134-144)
--- NOTE | 2017-02-13 06:03 | SOAPPROG ---
SOAP Progress Note Assessment/Plan: Assessment: Percy rodriguez fx Pain in ankle Kristina po Overall better appearance today Splint intact, appropriate fit Toes 1-5 with good cap refill. +DF/PF Plan: Fx best treated with ORIF. Patient needs post op dispo that will allow for safe healing environment. I fthis can be arranged, will plan ORIF on Saturday02/10/17 13:36 02/13/17 05:59 S/P ORIF Percy Rodriguez Currently resting comfortably Having pain at ankle Toes 1-5 with good cap refill Able to flex/ext (limited) Plan: OOB/PT Should be non weight bearing x 6 wks OK for D/C from ortho surg standpoint. F/U would normally be in ~ 1 wk. However, all sutures are disolvable so if patient lost to follow up, no need for removable. Objective: Vital Signs Temp Pulse Resp BP Pulse Ox 36.8 C 102 H 12 119/77 95 02/13/17 04:00 02/13/17 04:00 02/13/17 04:00 02/13/17 04:00 02/13/17 04:00 Laboratory Results 02/13/17 05:10 02/13/17 05:10 02/11/17 02/12/17 02/13/17 05:59 05:59 05:59 Intake Total 620 783 1362 Output Total 2100 700 1630 Balance -1600 -200 150 ICD10 Worksheet Patient Problems: Problems Problem Status Onset Closed left ankle fracture Acute Alcoholic intoxication Acute
[2017-02-13] MEDS: clonazePAM 1 MG TAB PO SCH (08:01)
[2017-02-13] MEDS: MULTIVITAMINS 1 EACH TAB PO SCH (08:01)
[2017-02-13] MEDS: THIAMINE HCL 100 MG TAB PO SCH (08:01)
[2017-02-13] MEDS: ENOXAPARIN 40 MG/0.4 ML SYR SC SCH (08:02)
[2017-02-13] MEDS: FOLIC ACID 1 MG TAB PO SCH (08:02)
[2017-02-13] MEDS: NICOTINE 21 MG/24 HR PATCH TD SCH (08:04)
[2017-02-13 08:13] VITALS: BP 114/81; RESP 20; TEMP 98.6; O2SAT 93
[2017-02-13] MEDS: LORazepam 2 MG/ML INJ IVP PRN (08:16)
[2017-02-13] MEDS ORDERED: VODKA 50 ML BOTTLE PO SCH (10:15)
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
[2017-02-15] MEDS ORDERED: THIAMINE HCL 100 MG TAB PO SCH (09:00)
== END 2017-02-13 11:15 | disposition left against medical advice (07) | DRG 493 ==
LOC: EDUNIT# → EEVIPCON 15:11 → OBSVTOIN 15:11 → F3N 15:48 → F2N 02-11 11:36
PROVIDERS: ADMIT Internal Medicine; ATTEND Internal Medicine
PROC: 0SSG04Z Reposition Left Ankle Joint with Internal Fixation Device, Open Approach (ICD-10-PCS; principal; 2017-02-12 14:00)
DX: S82.842A Displaced bimalleolar fracture of left lower leg, initial encounter for closed fracture (principal); W17.89XA Other fall from one level to another, initial encounter; X50.1XXA Overexertion from prolonged static or awkward postures, initial encounter; F10.229 Alcohol dependence with intoxication, unspecified; F10.239 Alcohol dependence with withdrawal, unspecified; F17.210 Nicotine dependence, cigarettes, uncomplicated; F12.90 Cannabis use, unspecified, uncomplicated; F15.90 Other stimulant use, unspecified, uncomplicated; F31.9 Bipolar disorder, unspecified; F20.9 Schizophrenia, unspecified
CPT/HCPCS: 97162-GP; 97164-GP; 97165-GO; 97168-GO; C1713; G0480; J0690; J1650; J2060; J2250; J2405; J3475

== ENCOUNTER 2017-02-14 07:42 | Emergency (ER) | payer MEDICAID ==
[2017-02-14 07:54] VITALS: RESP 18; TEMP 98.6
--- NOTE | 2017-02-14 07:55 | EDPHY ---
H & P Time Seen by Provider: 02/14/17 07:45 HPI/ROS: CHIEF COMPLAINT: Left ankle pain recent surgery HISTORY OF PRESENT ILLNESS: The patient presents to the ED with acute left ankle pain following recent surgery. The patient has a history of bipolar mood disorder. He was hospitalized 4 days ago with a left ankle injury. The patient reportedly had surgery yesterday and left the hospital against medical advice. The patient stated he left because he needed to take care of some business. The patient returns today with intractable pain and concerns that he made a irrational decision yesterday. The patient states that he is unable to care for himself with his fracture and current homeless state. The patient reports he has fallen out of his wheelchair several times and reportedly re-injured his left ankle. The patient reports moderate pain to the extremity. He denies additional painful injury. The patient reports he has been taking Seroquel. The patient denies taking any regular medications. The patient does have a history of alcohol dependence. REVIEW OF SYSTEMS: A comprehensive 10 point review of systems is otherwise negative aside from elements mentioned in the history of present illness. Source: Patient Exam Limitations: No limitations - Medical/Surgical History Hx Asthma: No Hx Chronic Respiratory Disease: No Hx Diabetes: No Hx Cardiac Disease: No Hx Renal Disease: No Hx Cirrhosis: No Hx Alcoholism: Yes Hx HIV/AIDS: No Hx Splenectomy or Spleen Trauma: No Other PMH: ETOH ABUSE, BIPOLAR, schizophrenia, add, depression, chronic back pain, hep c - Social History Smoking Status: Current every day smoker - Physical Exam Exam: General Appearance: Alert, no distress Head: Atraumatic Eyes: Pupils equal, round, reactive ENT, Mouth: No hemotympanum, no oral trauma Neck: Nontender, trachea midline Respiratory: No chest wall tender, subcutaneous air, lungs clear bilaterally Cardiovascular: Regular rate and rhythm Abdomen: Abdomen is soft and nontender, pelvis stable Skin: No lacerations, No abrasion Back: No midline T/L/S pain Extremities: Tenderness to palpation left ankle, surgical incisions are clean dry and intact, expected postoperative mild ecchymotic changes noted Neurological: A&Ox3, normal motor function, normal sensory exam Constitutional: Initial Vital Signs Temperature (C) 37 C 02/14/17 07:45 Heart Rate 94 02/14/17 07:45 Respiratory Rate 18 02/14/17 07:45 Blood Pressure 120/69 02/14/17 07:45 O2 Sat (%) 97 02/14/17 07:45 O2 Delivery Mode Room Air Allergies/Adverse Reactions: trazodone Allergy (Intermediate, Verified 02/14/17 08:07) ?extrapyramidal sxs Home Medications: Medication Instructions Recorded NK [No Known Home Meds] 02/14/17 Medical Decision Making - Diagnostics Imaging Results: Imaging Impressions Ankle X-Ray 02/14/17 07:48 Impression: Postoperative changes of ORIF are noted. ED Course/Re-evaluation: The patient presents to the ED with complaints of acute left foot pain following a fall from his wheelchair. The patient's splint was taken down. There is no evidence of dehiscence or infection. It was redressed appropriately. The patient was taken for x-rays which demonstrate no evidence of an acute fracture. The patient did received 2 oral Percocet. I reviewed the patient's past medical records including his discharge assessment yesterday. Consultation was made with our high school social studies tutor at 10:00 a.m. to evaluate the patient's current disposition. At this point time, there are no resources available for the patient for rehabilitation. He does not meet criteria for SNF. The patient currently is in a wheelchair. The patient will be given a prescription for pain medication. He is advised to follow up with Dr. Chowdhury within the next week. Differential Diagnosis: Differential diagnosis considered includes fracture, sprain, dislocation - Data Points Medications Given: Discontinued Medications Oxycodone/Acetaminophen (Percocet 5/325) 2 tab PO EDNOW ONE Stop: 02/14/17 07:58 Last Admin: 02/14/17 08:01 Dose: 2 tab Departure - Departure Disposition: Home, Routine, Self-Care Clinical Impression: Closed left ankle fracture Condition: Good Instructions: Ankle Fracture (ED) Additional Instructions: 1. Percocet as needed for pain. 2. Please follow up as directed with case management. 3. Please follow up with Dr. Prashant Chowdhury from Orthopedic surgery for a wound check in the week. Referrals: Prashant Chowdhury MD [Medical Doctor] - As per Instructions [facility] [address] [Clinic] - As per Instructions
[2017-02-14] MEDS ORDERED: OXYCODONE/APAP 5/325 TAB PO ONE (07:57)
[2017-02-14 11:21] VITALS: BP 127/86; PULSE 76; O2SAT 96
== END 2017-02-14 11:54 | disposition home or self-care (01) ==
LOC: EDUNIT# → EEVIPCON 07:42
DX: S82.892D Other fracture of left lower leg, subsequent encounter for closed fracture with routine healing (principal); F17.200 Nicotine dependence, unspecified, uncomplicated; W05.0XXD Fall from non-moving wheelchair, subsequent encounter

== ENCOUNTER 2017-02-19 21:53 | Emergency (ER) | payer MEDICAID ==
[2017-02-19] MEDS ORDERED: OLANZapine 10 MG/2 ML VIAL IM ONE ×2 (21:59→22:12)
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
[2017-02-19 22:36] VITALS: RESP 18
[2017-02-20 06:03] VITALS: TEMP 97.3
[2017-02-20 07:01] VITALS: BP 122/82; PULSE 86; O2SAT 94
== END 2017-02-20 07:01 | disposition home or self-care (01) ==
LOC: EDUNIT#
DX: F10.129 Alcohol abuse with intoxication, unspecified (principal); F17.200 Nicotine dependence, unspecified, uncomplicated

== ENCOUNTER 2017-05-07 15:45 | Emergency (ER) | payer MEDICAID ==
--- NOTE | 2017-05-07 15:48 | EDPHY ---
HPI/HX/ROS/PE/MDM Narrative: CHIEF COMPLAINT: Wants reevaluation of ankle post surgery HPI: The patient is an intoxicated 41 y/o male arriving via EMS requesting re- evaluation of his "shattered" left ankle post surgery three months ago. Per EMS he was found down at [employer], but was arousable with verbal stimulus and admitted to drinking heavily today. He has ongoing pain in his left ankle since his fracture three months ago. He signed out from that admission AMA after he was advised to not bear weight. He has not followed up with any of the recommended providers nor followed through on aftercare as directed. He denies any acute complaints aside from being hungry. REVIEW OF SYSTEMS: Aside from elements discussed in the HPI, a comprehensive 10-point review of systems was reviewed and is negative. PMH: Left bimalleolar distal tibial fracture and surgery. Alcoholism. Unclear mental health diagnoses - takes Seroquel, [place] SOCIAL HISTORY: Substance abuse. Homeless. 4 packs/day smoker. Lives in [place]. Prior medical records reviewed including admission 02/09/17 for ankle fracture and repair; signed out AMA 02/13/17. PHYSICAL EXAM: General:Patient is alert, in no acute distress. ENT:Eyes are normal to inspection. ENT inspection normal. Neck: Normal inspection. Full range of motion. Respiratory:No respiratory distress. Breath sounds normal bilaterally. Cardiovascular: Regular rate and rhythm. Strong peripheral pulses. Normal cap refill. Abdomen:The abdomen is nontender to palpation. There are no peritoneal signs. Back: Normal to inspection. No tenderness to palpation. Skin: Normal color. No rash. Warm and dry. Extremities: Left ankle has mild swelling, no erythema or skin breakdown. Otherwise normal appearance with full range of motion. Neuro: Oriented x3. Normal motor function. Normal sensory function. ED Course: This is a homeless 41 y/o male with a history of heavy alcohol abuse and a significant left ankle fracture 3 months ago who presents intoxicated and requesting re-evaluation of his ankle. He has been noncompliant with all recommended follow up care including maintaining non-weightbearing status following his surgery. Today, there is mild swelling around his left ankle without any evidence of infection. Left ankle x-ray series ordered. X-rays show a healing left ankle fracture consistent with weightbearing directly following his surgery. I reassessed patient and discussed recommendation to follow up with the resources provided following his surgery. Tylenol and ibuprofen recommended for pain. He expresses understanding of this. Return precautions discussed. MDM: This patient presents after being found intoxicated, now complaining of ongoing ankle pain and requesting food and pain medications. The patient's x-ray reveals that his fractures are healing poorly, clearly as a result of failure to follow medical advice, which he has a long history of. The patient declines additional workup or treatment. He does not appear interested in changing his lifestyle or following-up for his ankle fracture. - Data Points Imaging Results: Imaging Impressions Ankle X-Ray 05/07/17 15:51 Impression: Postsurgical changes of open reduction and internal fixation of a comminuted distal tibial fracture with intra-articular extension with stable alignment. There is, however, excessive callus formation at the distal metadiaphysis, which could represent movement, excessive weightbearing, loosening, or infection. Surrounding soft tissue swelling. 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 Results called and discussed with Dr. Denny Negrete on May 07, 2017 at 1621 hours. Imaging: I viewed and interpreted images myself General Initial Vital Signs: Initial Vital Signs Temperature (C) 36.8 C 05/07/17 15:45 Heart Rate 88 05/07/17 15:45 Respiratory Rate 18 05/07/17 15:45 Blood Pressure 93/77 L 05/07/17 15:45 O2 Sat (%) 97 05/07/17 15:45 O2 Delivery Mode Room Air Allergies/Adverse Reactions: trazodone Allergy (Intermediate, Verified 05/07/17 16:14) ?extrapyramidal sxs Home Medications: Medication Instructions Recorded NK [No Known Home Meds] 05/07/17 Departure - Departure Disposition: Home, Routine, Self-Care Clinical Impression: Chronic pain of left ankle Alcoholic intoxication Qualifiers: Complication of substance-induced condition: uncomplicated Qualified Code(s): F10.920 - Alcohol use, unspecified with intoxication, uncomplicated Condition: Good Instructions: Ankle Fracture (ED), Alcohol Intoxication (ED), Abuse of Alcohol (ED) Additional Instructions: Avoid abuse of alcohol. Use Tylenol and ibuprofen as directed on the packaging as needed for pain over the next week. Follow up with your primary care provider and orthopedist as previously directed for management of your ankle fracture. Referrals: [facility],. [Clinic] - As per Instructions Report Scribed for: Denny Negrete Report Scribed by: Alejandra Busch Date of Report: 05/07/17 Time of Report: 15:45 Physician Review and Approval Statement: Portions of this note were transcribed by an ED scribe. I personally performed the history, physical exam, and medical decision making; and confirm the accuracy of the information in the transcribed note.
[2017-05-07 16:14] VITALS: RESP 18; O2SAT 97
[2017-05-07 16:42] VITALS: BP 99/77; PULSE 87; TEMP 98.4
== END 2017-05-07 16:42 | disposition home or self-care (01) ==
LOC: EDUNIT#
DX: M25.572 Pain in left ankle and joints of left foot (principal); G89.29 Other chronic pain; F10.920 Alcohol use, unspecified with intoxication, uncomplicated

== ENCOUNTER 2017-05-15 21:42 | Emergency (ER) | payer MEDICAID ==
[2017-05-15 21:51] VITALS: BP 137/94; PULSE 97; RESP 16; TEMP 97.7; O2SAT 92
--- NOTE | 2017-05-15 21:53 | EDPHY ---
H & P Time Seen by Provider: 05/15/17 21:50 HPI/ROS: CHIEF COMPLAINT: Alcohol intoxication HISTORY OF PRESENT ILLNESS: 41-year-old homeless male presents to the emergency department by ambulance with acute alcohol intoxication and stating that he is unable to ambulate. No reported trauma. The patient admits to drinking alcohol today. No other drugs. No reported trauma. He has no chest pain or difficulty breathing. He has chronic pain in his left ankle since having surgery few months ago. No chest pain or difficulty breathing. No abdominal pain. No headache. No neck or back pain. REVIEW OF SYSTEMS: Constitutional: No fever, no chills. Eyes: No double or blurry vision. ENT: No sore throat. Respiratory: No cough, no shortness of breath. Cardiac: No chest pain. Gastrointestinal: No abdominal pain, vomiting or diarrhea. Genitourinary: No dysuria. Musculoskeletal: No neck or back pain. Skin: No rashes. Neurological: No headache. Past Medical/Surgical History: Left ankle surgery, alcoholism Social History: Homeless Smoking Status: Current every day smoker Physical Exam: General Appearance: Alert, no distress. No physical signs of trauma to his head. He is mentating normally and answering questions appropriately. He is asking for food. He smells strongly of alcohol. Eyes: Pupils equal and round. Extraocular motions are all intact. ENT: Mouth: Mucous membranes moist. Respiratory: No wheezing, rhonchi, or rales, lungs are clear to auscultation. Cardiovascular: Regular rate and rhythm. Gastrointestinal: Abdomen is soft and nontender, no masses, no rebound or guarding, bowel sounds normal. Neurological: Alert and oriented x 3, cranial nerves II through XII grossly intact Skin: Warm and dry, no rashes. Musculoskeletal: Nontender to palpate along the cervical, thoracic or lumbar spine. Neck is supple. Extremities: Full range of motion and no peripheral edema. Antalgic gait due to chronic pain in his left ankle. Psychiatric: Patient is oriented X 3, there is no agitation. Constitutional: Initial Vital Signs Temperature (C) 36.5 C 05/15/17 21:46 Heart Rate 97 05/15/17 21:46 Respiratory Rate 16 05/15/17 21:46 Blood Pressure 137/94 H 05/15/17 21:46 O2 Sat (%) 92 05/15/17 21:46 O2 Delivery Mode Room Air Allergies/Adverse Reactions: trazodone Allergy (Intermediate, Verified 05/07/17 16:14) ?extrapyramidal sxs Home Medications: Medication Instructions Recorded NK [No Known Home Meds] 05/07/17 Medical Decision Making ED Course/Re-evaluation: 41-year-old male presents to the emergency department with acute alcohol intoxication. The patient was initially refusing to ambulate. He was unable to ambulate without any difficulty. He will be discharged to the addiction recovery [facility]. Differential Diagnosis: Including but not limited to acute alcohol intoxication, dehydration, electrolyte abnormality Departure - Departure Disposition: Home, Routine, Self-Care Clinical Impression: Alcoholic intoxication Qualifiers: Complication of substance-induced condition: uncomplicated Qualified Code(s): F10.920 - Alcohol use, unspecified with intoxication, uncomplicated Condition: Good Instructions: Alcohol Intoxication (ED) Additional Instructions: You should not drink alcohol in excess. Referrals: [facility] [Outside] - As per Instructions
== END 2017-05-15 22:04 | disposition home or self-care (01) ==
LOC: EDUNIT#
DX: F10.920 Alcohol use, unspecified with intoxication, uncomplicated (principal); F17.200 Nicotine dependence, unspecified, uncomplicated

== ENCOUNTER 2017-05-26 10:31 | Emergency (ER) | payer MEDICAID ==
--- NOTE | 2017-05-26 10:26 | EDPHY ---
H & P - Personal History Current Tetanus Diphtheria and Acellular Pertussis (TDAP): No Constitutional: Initial Vital Signs Temperature (C) 36.8 C 05/26/17 10:34 Heart Rate 113 H 05/26/17 10:34 Respiratory Rate 18 05/26/17 10:34 Blood Pressure 139/106 H 05/26/17 10:34 O2 Sat (%) 95 05/26/17 10:34 O2 Delivery Mode Room Air Allergies/Adverse Reactions: trazodone Allergy (Intermediate, Verified 05/07/17 16:14) ?extrapyramidal sxs Home Medications: Medication Instructions Recorded NK [No Known Home Meds] 05/07/17 Medical Decision Making ED Course/Re-evaluation: CHIEF COMPLAINT: Seizure, withdrawal HISTORY OF PRESENT ILLNESS: The patient is a homeless 41 y/o male with a history of withdrawal seizures arriving via EMS following a seizure. He had been refraining from alcohol consumption until immediately prior to the seizure when he drank a beer. He denies any other associated symptoms. He denies wanting help with detox and rehabilitation. REVIEW OF SYSTEMS: A 10 point review of systems was performed and is negative with the exception of the elements mentioned in the history of present illness. PHYSICAL EXAM: HR, BP, O2 Sat, RR. Temp noted General Appearance: Alert, well hydrated, appropriate, and non-toxic appearing. Head: Atraumatic without scalp tenderness or obvious injury Eyes: Pupils equal, round, reactive to light and accommodation, EOMI, no trauma , no injection. Ears: Clear bilaterally, no perforation, normal landmarks Nose: Atraumatic, no rhinorrhea, clear. Throat: Bite to left lateral tongue. There is no erythema or exudates, no lesions, normal tonsils, mucus membranes moist. Neck: Supple, nontender, no lymphadenopathy. Respiratory: No retractions, no distress, no wheezes, and no accessory muscle use. Lungs are clear to auscultation bilaterally. Cardiovascular: Regular rate and rhythm, no murmurs, rubs, or gallops.. Good capillary refill all extremities. Gastrointestinal: Abdomen is soft, nontender, non-distended, no masses, no rebound, no guarding, no peritoneal signs. Musculoskeletal: Normal active ROM of all extremities, atraumatic. Neurological: Alert, appropriate, and interactive. The patient has normal DTRs and non-focal cranial nerves, motor, sensory, and cerebellar exam. Fully intact, following commands. Skin: No rashes, good turgor, no nodules on palpation. Past medical history: Withdrawal seizures, alcohol abuse Past surgical history: Denies Family history: Non-contributory Social history: Homeless, residing in [place], unemployed DIAGNOSTICS/PROCEDURES/CRITICAL CARE TIME: DIFFERENTIAL DIAGNOSIS: The differential diagnosis for the patient's seizure included but was not limited to electrolyte abnormality, alcohol withdrawal, medication noncompliance, head injury, [employer] structural abnormality, and break through seizure. MEDICAL DECISION MAKING: The patient is a homeless 41 y/o male with a history of alcohol abuse and withdrawal seizures arriving via EMS following a seizure. He had been withdrawing until immediately before the seizure at which time he drank a beer. He denies any other complaints. Based on his history and the glucose from EMS I feel this is likely a withdrawal seizure and the patient agrees. I have offered him rehabilitations services which he has denied. Return precautions given. - Data Points Medications Given: Discontinued Medications Lorazepam (Ativan) 1 mg PO EDNOW ONE Stop: 05/26/17 10:37 Last Admin: 05/26/17 10:40 Dose: 1 mg Ondansetron HCl (Zofran Odt) 4 mg PO EDNOW ONE Stop: 05/26/17 10:37 Last Admin: 05/26/17 10:40 Dose: 4 mg Departure - Departure Disposition: Home, Routine, Self-Care Clinical Impression: Alcohol withdrawal seizure Qualifiers: Complication of substance-induced condition: uncomplicated Qualified Code(s): F10.230 - Alcohol dependence with withdrawal, uncomplicated Condition: Good Instructions: Alcohol Withdrawal (ED) Additional Instructions: 1. If you would like detox and rehabilitation services please contact us/ 2. Return to the ED for further seizures or worsening of condition. Referrals: [facility],. [Clinic] - As per Instructions Report Scribed for: Jerson Duffy Report Scribed by: Perla Jimenez Date of Report: 05/26/17 Time of Report: 10:36
[2017-05-26 10:35] VITALS: O2SAT 95
[2017-05-26 10:36] VITALS: BP 139/106; PULSE 113; RESP 18; TEMP 98.2
[2017-05-26] MEDS ORDERED: LORazepam 1 MG TAB PO ONE (10:36)
[2017-05-26] MEDS ORDERED: ONDANSETRON DISINTEGRATING 4 MG TAB PO ONE (10:36)
== END 2017-05-26 11:04 | disposition home or self-care (01) ==
LOC: EDUNIT#
DX: F10.230 Alcohol dependence with withdrawal, uncomplicated (principal)

== ENCOUNTER 2017-05-29 19:03 | Emergency (ER) | payer MEDICAID ==
[2017-05-29 19:39] LABS: % IMMATURE GRANULYOCYTES 0.4 % (0.0-1.1); ABSOLUTE IMMATURE GRANULOCYTES 0.04 10^3/uL (0.00-0.10); ADD DIFF? NO; ADD MORPH? NO; ADD SCAN? NO; ATYPICAL LYMPHOCYTE FLAG 10 (0-99); FRAGMENT RBC FLAG 0 (0-99); HEMATOCRIT 38.3 % (40.0-51.0); HEMOGLOBIN 14.3 g/dL (13.7-17.5); LEFT SHIFT FLG 0 (0-99); LIPEMIA HEMOLYSIS FLAG 90 (0-99); MEAN CELL HEMOGLOBIN 33.9 pg (27.9-34.1); MEAN CELL HEMOGLOBIN CONCENTR. 37.3 g/dL (32.4-36.7); MEAN CELL VOLUME 90.8 fL (81.5-99.8); MEAN PLATELET VOLUME 9.9 fL (8.7-11.7); PLATELET CLUMPS FLAG 0 (0-99); PLATELET COUNT 239 10^3/uL (150-400); RED BLOOD CELL COUNT 4.22 10^6/uL (4.40-6.38)
--- NOTE | 2017-05-29 19:45 | EDPHY ---
HPI/HX/ROS/PE/MDM Narrative: CHIEF COMPLAINT: M1 hold HPI: The patient is a 41-year-old male with a history of schizophrenia. He was brought to the emergency department by [place] [employer] on an M1 hold. Apparently 1 of his friends contact police that the patient was very altered and was having thoughts of self-harm and causing harm to others. The patient denies suicidal thoughts but he does admit to auditory hallucinations and feeling out of control. REVIEW OF SYSTEMS: Unable to obtain from patient secondary to altered mental status. PMH: Includes homeless, schizophrenia. SOCIAL HISTORY: Homeless. Denies drug abuse but history is limited. PHYSICAL EXAM: General:Patient is alert, appears very disorganized, disheveled. Head: Atraumatic Neck: Normal inspection. Full range of motion. Respiratory:No respiratory distress. Extremities: Normal appearance. Full range of motion. Neuro: Normal motor function. Normal sensory function. Psychiatric: Disorganized, difficult to obtain history, admits to suicidal and homicidal ideation. (Denny Negrete) [id number] care assumed by me from Dr. Lemon pending mental evaluation. 0700 patient signed out to Dr. Duffy pending mental health evaluation. No issues during my care this patient overnight. (Bobby Vega) 11:10 p.m. care transferred to Dr. Frost. (zOiel Lemon) ED Course: Patient awaiting utox. Signed out to Dr. Lemon pending sober and mental health evaluation. (Denny Negrete) MDM: This patient was signed out to me at change of shift. This patient has been evaluated by the psychiatric team. They have asked me to drop the 72 hour hold since the patient is not suicidal homicidal or gravely disabled. The patient meets criteria to be treated as an outpatient psychiatric patient resources have been provided. We will discharge the patient home. (Jerson Duffy) - Data Points Laboratory Results: Laboratory Results 05/29/17 19:20 05/29/17 19:20 Medications Given: Discontinued Medications Chlordiazepoxide HCl (Librium) 50 mg PO EDNOW ONE Stop: 05/30/17 02:16 Last Admin: 05/30/17 02:17 Dose: 50 mg Chlordiazepoxide HCl (Librium) 50 mg PO EDNOW ONE Stop: 05/30/17 08:28 Last Admin: 05/30/17 08:49 Dose: 50 mg Diphenhydramine HCl (Benadryl) 25 mg PO EDNOW ONE Stop: 05/30/17 09:29 Last Admin: 05/30/17 09:36 Dose: 25 mg Ibuprofen (Motrin) 600 mg PO EDNOW ONE Stop: 05/30/17 08:28 Last Admin: 05/30/17 08:49 Dose: 600 mg General Time Seen by Provider: 05/29/17 19:09 Initial Vital Signs: Initial Vital Signs Heart Rate 109 H 05/29/17 23:31 Respiratory Rate 16 05/29/17 23:31 Blood Pressure 122/80 H 05/29/17 23:31 O2 Sat (%) 95 05/29/17 23:31 O2 Delivery Mode Room Air Allergies/Adverse Reactions: trazodone Allergy (Intermediate, Verified 05/30/17 01:12) ?extrapyramidal sxs Home Medications: Medication Instructions Recorded [place] Carbonate 05/30/17 Risperdal 05/30/17 Seroquel 50 mg (*) 05/30/17 Departure - Departure Disposition: Home, Routine, Self-Care Clinical Impression: Polysubstance abuse Alcoholic intoxication Qualifiers: Complication of substance-induced condition: uncomplicated Qualified Code(s): F10.920 - Alcohol use, unspecified with intoxication, uncomplicated Condition: Good Instructions: Abuse of Alcohol (ED), Methamphetamine Abuse (ED), Polysubstance Abuse (ED) Referrals: NONE *PRIMARY CARE P,. [Primary Care Provider] - As per Instructions
[2017-05-29 19:57] LABS: ANION GAP 17 mEq/L (8-16); CALCIUM 8.9 mg/dL (8.5-10.4); CARBON DIOXIDE 21 mEq/l (22-31); CHLORIDE 93 mEq/L (97-110); CREATININE 0.8 mg/dL (0.7-1.3); ETHANOL SERUM 249 mg/dL (0-10); GLOMERULAR FILTRATION RATE > 60; GLUCOSE 92 mg/dL (70-100); POTASSIUM 3.8 mEq/L (3.5-5.2); SODIUM 131 mEq/L (134-144)
[2017-05-30] MEDS ORDERED: chlordiazePOXIDE 25 MG CAP ONE (02:14)
[2017-05-30] MEDS ORDERED: chlordiazePOXIDE 25 MG CAP PO ONE ×2 (02:15→08:27)
[2017-05-30] MEDS ORDERED: IBUPROFEN 600 MG TAB PO ONE (08:27)
[2017-05-30] MEDS ORDERED: diphenhydrAMINE 25 MG CAP PO ONE (09:28)
[2017-05-30 10:04] VITALS: BP 132/76; PULSE 94; RESP 15; TEMP 97.7; O2SAT 98
== END 2017-05-30 10:17 | disposition home or self-care (01) ==
LOC: EDUNIT#
DX: F19.10 Other psychoactive substance abuse, uncomplicated (principal); F10.920 Alcohol use, unspecified with intoxication, uncomplicated
CPT/HCPCS: 80305; G0480

== ENCOUNTER 2017-06-18 06:13 | Emergency (ER) | payer MEDICAID ==
[2017-06-18 06:22] VITALS: BP 122/99; PULSE 104; RESP 18; TEMP 98.2; O2SAT 95
[2017-06-18] MEDS ORDERED: chlordiazePOXIDE 25 MG CAP PO ONE (06:29)
[2017-06-18] MEDS ORDERED: CHLORDIAZEPOXIDE 25MG PREPK#6 BTL TAKEHOME ONE (06:29)
--- NOTE | 2017-06-18 06:31 | EDPHY ---
H & P Stated Complaint: Shaking - Sent from [facility] Time Seen by Provider: 06/18/17 06:29 HPI/ROS: Chief Complaint: Withdrawal HPI: 41-year-old homeless male with a history of chronic alcoholism [facility] with symptoms of alcohol withdrawal. Patient states his last drink was earlier this morning. He has a history of alcohol withdrawal seizures. Denies any recent illness. No fevers or chills. No nausea or vomiting. No chest pain or shortness of breath. No abdominal pain. ROS: 10 point Review of Systems is negative except as noted in the HPI. PMH: Alcohol withdrawal seizures Social History: Positive smoking, daily heavy alcohol, occasional marijuana Family History: non-contributory Physical Exam: Gen: Awake, Alert, No Distress, smells of alcohol, mildly tremulous, dirty and unkempt appearing HEENT: Nose: no rhinorrhea Eyes: PERRLA, EOMI Mouth: Moist mucosa Neck: Supple, no JVD Chest: nontender, lungs clear to auscultation Heart: S1, S2 normal, no murmur Abd: Soft, non-tender, no guarding Back: no CVA tenderness, no midline tenderness Ext: no edema, non-tender Skin: no rash Neuro: CN II-XII intact, Sensation grossly intact, Strength 5/5 in bilateral upper and lower extremities - Personal History Current Tetanus/Diphtheria Vaccine: Unsure Current Tetanus Diphtheria and Acellular Pertussis (TDAP): Unsure - Medical/Surgical History Hx Asthma: No Hx Chronic Respiratory Disease: No Hx Diabetes: No Hx Cardiac Disease: No Hx Renal Disease: No Hx Cirrhosis: No Hx Alcoholism: Yes Hx HIV/AIDS: No Hx Splenectomy or Spleen Trauma: No Other PMH: ETOH ABUSE, BIPOLAR, schizophrenia, add, depression, chronic back pain, hep c, L ANKLE REPAIR - Social History Smoking Status: Current every day smoker Constitutional: Initial Vital Signs Temperature (C) 36.8 C 06/18/17 06:14 Heart Rate 104 H 06/18/17 06:14 Respiratory Rate 18 06/18/17 06:14 Blood Pressure 122/99 H 06/18/17 06:14 O2 Sat (%) 95 06/18/17 06:14 O2 Delivery Mode Room Air Allergies/Adverse Reactions: trazodone Allergy (Intermediate, Verified 05/30/17 01:12) ?extrapyramidal sxs Home Medications: Medication Instructions Recorded [place] Carbonate 05/30/17 Risperdal 05/30/17 Seroquel 50 mg (*) 05/30/17 Medical Decision Making ED Course/Re-evaluation: 41-year-old homeless male well known to myself with history of chronic alcohol abuse. Patient is here with alcohol withdrawal. He has been given Librium here. Will also send him with a Librium prepack back to the [facility] for further care. Departure - Departure Disposition: Home, Routine, Self-Care Clinical Impression: Alcohol withdrawal Condition: Good Instructions: Chlordiazepoxide (By mouth), Alcohol Withdrawal (ED) Additional Instructions: Please seek help to decrease your alcohol use. Follow up with [facility] for any concerns. Referrals: [facility],. [Clinic] - As per Instructions
== END 2017-06-18 06:51 | disposition home or self-care (01) ==
DX: F10.239 Alcohol dependence with withdrawal, unspecified (principal); F17.200 Nicotine dependence, unspecified, uncomplicated

== ENCOUNTER 2017-07-28 19:14 | Emergency (ER) | payer MEDICAID ==
[2017-07-28 19:20] VITALS: RESP 16; TEMP 97.9
--- NOTE | 2017-07-28 19:30 | EDPHY ---
H & P Smoking Status: Current every day smoker HPI/ROS: HPI From [facility], too intoxicated to stay. 42-year-old male by ambulance. This patient was placed on an arc hold by police earlier today and sent to the [facility]. He initially tried to leave the [facility] with staff assured him back inside. They then assessed him. He would not ambulate and they deemed that he was too intoxicated to be there. He was then sent here for evaluation. The patient reports to me that he was drinking alcohol earlier in the day but that he also took lorazepam. He says he took a cap full of lorazepam but can't give us any further details. He denies heroin, methadone or other street drugs. There is no history of trauma. He has been seen in our emergency department multiple times in the past with similar presentations. ROS: Constitutional: No fever, no chills. As above. Eyes: No discharge. No changes in vision. ENT: No sore throat. No nasal congestion or rhinorrhea. Respiratory: No cough. No shortness of breath. Cardiac: No chest pain, no palpitations. Gastrointestinal: No abdominal pain, no vomiting, no diarrhea. Genitourinary: No hematuria. No dysuria or increased frequency with urination. Musculoskeletal: No back pain. No neck pain. No myalgias or arthralgias. Skin: No rashes. Neurological: No headache. No focal weakness or altered sensation. Past medical history: Alcohol abuse with history of alcohol withdrawal seizures , substance abuse. Social history: Homeless, unemployed, resides in [place]. Physical Exam: General Appearance: Sleepy but awake. Disheveled and dirty. This patient is responding to questions with slurred speech in incomplete sentences. This patient appears generally well-hydrated and well-nourished. Head: Normocephalic atraumatic. Eyes: Pupils equal and round and reactive to light at 3-2 mm bilaterally, no pallor or injection. No lid edema, erythema or injection. ENT, Mouth: Mucous membranes are moist. Poor dentition. The pharyngeal tissues are unremarkable. No edema or swelling. No asymmetry suggestive of abscess. No erythema or exudates. No tongue lacerations or abrasions. Respiratory: There are no retractions, lungs are clear to auscultation with good air movement bilaterally. Cardiovascular: Regular rate and rhythm. No murmur. Gastrointestinal: Abdomen is soft and nontender, no masses, bowel sounds normal. No focal tenderness at McBurney's point. No Chandler sign. Neurological: Motor sensory function is grossly intact. Cranial nerves are normal. Skin: Warm and dry, no rashes. Musculoskeletal: Neck is supple and nontender. Extremities are symmetrical. All joints range without pain or impingement. Psychiatric: No agitation. As above. Database: EKG: Imaging: Procedures: Emergency department course: Vital signs reviewed and are normal. Initial attempts of breath alcohol, 0.011. Plan will be to allow the patient to sober in the emergency department. Probable disposition, discharge back to the [facility]. 8:15 p.m., patient has had some juice and crackers. He is currently sleeping. 9:00 p.m., serum alcohol is 20, glucose is 73. Patient is currently sleeping. Vital signs have remained stable. Presentation is likely secondary to benzodiazepine intoxication. Will continue to observe until appropriately sober for discharge to the [facility]. Care turned over to Dr. Angela Strong at 9:00 p.m.. Differential Diagnosis: The differential diagnosis on this patient includes but is not limited to alcohol intoxication, benzodiazepine intoxication, substance abuse. This represents a partial list of diagnoses considered. These considerations are based on history, physical exam, past history, reassessment and diagnostic testing. (Leona Day) [id number]: Patient is now ambulatory. Answer my questions appropriately. Has a normal gait. Safe and ready for discharge from the emergency room. He slept here all night. (Torrey Ware) Constitutional: Initial Vital Signs Temperature (C) 36.6 C 07/28/17 19:16 Heart Rate 84 07/28/17 19:16 Respiratory Rate 16 07/28/17 19:16 Blood Pressure 102/76 07/28/17 19:16 O2 Sat (%) 98 07/28/17 19:16 O2 Delivery Mode Room Air Allergies/Adverse Reactions: trazodone Allergy (Intermediate, Verified 05/30/17 01:12) ?extrapyramidal sxs Home Medications: Medication Instructions Recorded [place] Carbonate 05/30/17 Risperdal 05/30/17 Seroquel 50 mg (*) 05/30/17 Medical Decision Making ED Course/Re-evaluation: 9:30pm-I assumed care of this pt. He presents with AMS, likely benzo-induced. Will observe until able to walk with a steady gait. (LigiaDalia S) 1201AM: Patient signed over to me at 11:00 p.m. shift change. Patient had unsteady gait could not be discharged from the emergency room. I did go and evaluate him he is very sleepy. His alcohol level was not very elevated. I did ambulate him again with a very unsteady gait. Will continue to monitor. He was able to give us a urine sample which shows positive for benzodiazepine this is most likely the cause of him being so sleep and unable to walk appropriately. Will allow him to rest here. Keep a close eye on him. Metabolize the benzos. When it is light out day we will re-evaluate him CV is steady gait and can be safely discharged from the emergency room. (Torrey Ware) - Data Points Laboratory Results: Laboratory Results 07/28/17 19:30 07/28/17 07/28/17 23:10 19:30 Glucose 73 mg/dL mg/dL (70-100) Urine Opiates Screen NEGATIVE (NEGATIVE) Urine Barbiturates NEGATIVE (NEGATIVE) Ur Phencyclidine Scrn NEGATIVE (NEGATIVE) Ur Amphetamine Screen NEGATIVE (NEGATIVE) U Benzodiazepines Scrn NON-NEGATIVE H (NEGATIVE) Urine Cocaine Screen NEGATIVE (NEGATIVE) U Marijuana (THC) Screen NON-NEGATIVE H (NEGATIVE) Ethyl Alcohol 20 mg/dL H mg/dL (0-10) Departure - Departure Disposition: Home, Routine, Self-Care Clinical Impression: Polysubstance abuse, Benzodiazepine abuse, Alcohol abuse Condition: Good Instructions: Abuse of Alcohol (ED) Additional Instructions: Read and follow provided instructions. Follow-up with your primary care physician at [facility] in 1-2 days for re -evaluation and consideration of a detox program. Do not abuse alcohol or take drugs. Return to the emergency department for worsening symptoms or other serious concerns. Referrals: [facility] [Outside] - As per Instructions
[2017-07-28] MEDS ORDERED: AMMONIA AROMATIC 1 EACH AMP IH ONE ×2 (22:59→23:02)
[2017-07-29 03:46] VITALS: O2SAT 100
[2017-07-29 06:39] VITALS: BP 110/70; PULSE 68
== END 2017-07-29 06:39 | disposition home or self-care (01) ==
LOC: EDUNIT#
DX: F10.129 Alcohol abuse with intoxication, unspecified (principal); F13.129 Sedative, hypnotic or anxiolytic abuse with intoxication, unspecified; F17.200 Nicotine dependence, unspecified, uncomplicated
CPT/HCPCS: 80305; 82947-QW; G0480

== ENCOUNTER 2017-08-11 21:53 | Emergency (ER) | payer MEDICAID ==
[2017-08-11 21:55] VITALS: BP 121/92; PULSE 102; RESP 18; TEMP 97.7; O2SAT 96
--- NOTE | 2017-08-11 22:17 | EDPHY ---
HPI/HX/ROS/PE/MDM Narrative: CHIEF COMPLAINT: Alcohol intoxication HISTORY OF PRESENT ILLNESS: The patient is a 42 y/o male with a history of alcoholism arriving in [place] [employer] custody on an [facility]C hold. He is currently intoxicated and admits to drinking "a lot" of alcohol today. The [facility] will not accept the patient until he receives medication for alcohol withdrawal seizures. No fever, chills, chest pain, shortness of breath, palpitations, vomiting, diarrhea, urinary complaints, headache, lightheadedness. REVIEW OF SYSTEMS: Aside from elements discussed in the HPI, a comprehensive 10-point review of systems was reviewed and is negative. PAST MEDICAL HISTORY: Alcohol abuse with history of alcohol withdrawal seizures , substance abuse SOCIAL HISTORY: Homeless, unemployed, resides in [place] VITAL SIGNS: Reviewed by me GENERAL: Disheveled, well-developed, well-nourished, resting comfortably in no respiratory distress. HEENT: Atraumatic. Eyes: No icterus, no injection. Mouth: moist mucous membranes. No erythema or lesions. Neck: supple with no adenopathy. LUNGS: Clear to auscultation bilaterally, no wheezes, rhonchi or rales. CARDIAC: Regular rate and rhythm, no rubs, murmurs or gallops. ABDOMEN: Soft, nontender, nondistended, bowel sounds normal. BACK: No CVA tenderness. EXTREMITIES: No trauma. No edema. Range of motion is normal throughout. NEURO: Alert and oriented, grossly nonfocal. SKIN: Warm and dry, no rash. PSYCHIATRIC: Normal mentation, no agitation. Portions of this note were transcribed by a hospitalist medical director. I personally performed a history, physical exam, medical decision making, and confirmed accuracy of information the transcribed note. ED Course: The patient is a 42 y/o male in [place] [employer] custody presenting to the ED to receive medication for alcohol related seizures before being admitted to the [facility]. On exam he is disheveled, alert, and shows no signs of alcohol withdrawal. He is medically clear to go to the [facility]. Reassessed patient and discussed taking Librium for his alcohol withdrawal seizures; patient is comfortable with this plan. Return precautions provided. MDM: Diff dx considered included not limited to alcohol intoxication, alcohol withdrawl, seizure disorder, electrolyte abnormality, illicit drug use, drug seeking behaviour. - Data Points Medications Given: Discontinued Medications Chlordiazepoxide (Librium 25 Mg Prepack#6) 1 btl HCRISTINA GARCIANOW ONE Stop: 08/11/17 22:19 Last Admin: 08/11/17 22:21 Dose: 1 btl General Time Seen by Provider: 08/11/17 22:13 Initial Vital Signs: Initial Vital Signs Temperature (C) 36.5 C 08/11/17 21:53 Heart Rate 102 H 08/11/17 21:53 Respiratory Rate 18 08/11/17 21:53 Blood Pressure 121/92 H 08/11/17 21:53 O2 Sat (%) 96 08/11/17 21:53 O2 Delivery Mode Room Air Allergies/Adverse Reactions: trazodone Allergy (Intermediate, Verified 08/11/17 21:56) ?extrapyramidal sxs Home Medications: Medication Instructions Recorded [place] Carbonate 05/30/17 Risperdal 05/30/17 Seroquel 50 mg (*) 05/30/17 Departure - Departure Disposition: Home, Routine, Self-Care Clinical Impression: Alcohol dependence Alcoholic intoxication Qualifiers: Complication of substance-induced condition: uncomplicated Qualified Code(s): F10.920 - Alcohol use, unspecified with intoxication, uncomplicated Condition: Good Instructions: Chlordiazepoxide (By mouth), Alcohol Intoxication (ED), Abuse of Alcohol (ED) Additional Instructions: Take Librium as prescribed. Take your regular medicines as prescribed. Please refrain from abusing alcohol. Return to the emergency department immediately for fever, vomiting, confusion, headache, abdominal pain or other worsening of condition. Followup with your primary care physician within 72 hours for reevaluation. Referrals: [facility] [Outside] - As per Instructions Report Scribed for: Nicole Garcia Report Scribed by: Alexandria Phelps Date of Report: 08/11/17 Time of Report: 22:14
[2017-08-11] MEDS ORDERED: CHLORDIAZEPOXIDE 25MG PREPK#6 BTL TAKEHOME ONE ×2 (22:18→22:19)
== END 2017-08-11 22:23 | disposition home or self-care (01) ==
DX: F10.220 Alcohol dependence with intoxication, uncomplicated (principal)

== ENCOUNTER 2018-01-05 13:51 | Emergency (ER) | payer MEDICAID, OTHER ==
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
[2018-01-05] MEDS ORDERED: SULFAMETHOX/TMP 800/160 MG 1 TAB PO ONE (14:14)
[2018-01-05] MEDS ORDERED: OLANZapine DISINTEGR 5 MG TAB PO ONE (14:14)
[2018-01-05 14:35] LABS: PLATELET COUNT 182 10^3/uL (150-400)
[2018-01-06] MEDS ORDERED: chlordiazePOXIDE 25 MG CAP PO ONE (08:57)
[2018-01-06 12:50] VITALS: BP 119/94
== END 2018-01-06 12:49 | disposition home or self-care (01) ==
DX: F20.0 Paranoid schizophrenia (principal); F10.920 Alcohol use, unspecified with intoxication, uncomplicated; R45.851 Suicidal ideations; L03.114 Cellulitis of left upper limb; F17.200 Nicotine dependence, unspecified, uncomplicated; Z91.14 Patient's other noncompliance with medication regimen
CPT/HCPCS: 80305; G0480

== ENCOUNTER 2018-01-29 20:27 | Emergency (ER) | payer MEDICAID, OTHER ==
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
[2018-01-29] MEDS ORDERED: CHLORDIAZEPOXIDE 25MG PREPK#6 BTL TAKEHOME ONE (23:11)
[2018-01-29 23:18] VITALS: BP 121/94
== END 2018-01-29 23:36 | disposition home or self-care (01) ==
LOC: EDUNIT#
DX: F10.10 Alcohol abuse, uncomplicated (principal); R06.89 Other abnormalities of breathing

== ENCOUNTER 2018-02-20 | Emergency (ER) | payer OTHER | END 2018-02-21 05:38 | disposition home or self-care (01) | DX: F10.920 Alcohol use, unspecified with intoxication, uncomplicated (principal) | CPT/HCPCS: G0480 ==

== ENCOUNTER 2018-03-10 02:04 | Emergency (ER) | payer OTHER ==
[2018-03-10 02:11] VITALS: BP 117/83
--- NOTE | 2018-03-10 02:16 | EDPHY ---
H & P Stated Complaint: itchy red bumps Time Seen by Provider: 03/10/18 02:16 HPI/ROS: HPI CHIEF COMPLAINT: "I think I have scabies" HISTORY OF PRESENT ILLNESS: 42-year-old male, well known to myself as well as the emergency room, homeless, alcohol, presents emergency room with a chief rash all over. States started 24 hr ago. He thinks he may have scabies. He presents with find morbilliform and sandpaper rash all over. Itchy. Past Medical History: Alcoholism Past Surgical History: No recent surgery Social History: Homeless, daily alcohol use. Family History: Noncontributory ROS REVIEW OF SYSTEMS: 10 Systems were reviewed and negative with the exception of the elements mentioned in the history of present illness. Exam Constitutional triage nursing summary reviewed, vital signs reviewed, awake/ alert. Eyes normal conjunctivae and sclera, EOMI, PERRLA. HENT normal inspection, atraumatic, moist mucus membranes, no epistaxis, neck supple/ no meningismus, no raccoon eyes. Respiratory clear to auscultation bilaterally, normal breath sounds, no respiratory distress, no wheezing. Cardiovascular rate normal, regular rhythm, no murmur, no edema, distal pulses normal. Gastrointestinal soft, non-tender, no rebound, no guarding, normal bowel sounds, no distension, no pulsatile mass. Genitourinary no CVA tenderness. Musculoskeletal no midline vertebral tenderness, full range of motion, no calf swelling, no tenderness of extremities, no meningismus, good pulses, neurovascularly intact. Skin fine sandpaper type rash throughout. No particular purpura. No abscess no cellulitis. Rash appears to be scabies. Neurologic awake, alert and oriented x 3, AAOx3, moves all 4 extremities equally, motor intact, sensory intact, CN II-XII intact, normal cerebellar, normal vision, normal speech. Psychiatric normal mood/affect. Heme/Lymph/Immune no lymphadenopathy. Differential Diagnosis: Includes but is not limited to in a particular order scabies, contact dermatitis, allergic reaction Medical Decision Making: Plan for this patient recommend permethrin, recommend diffusely applying and allowing it to sit for a long time. Before showering. Patient understands. Distally return precautions discussed. Sometimes 2nd treatment needs to be done. He understands. Scabies appears to be nontoxic. No evidence of superinfection. Source: Patient - Personal History Current Tetanus/Diphtheria Vaccine: Yes Current Tetanus Diphtheria and Acellular Pertussis (TDAP): Yes - Medical/Surgical History Hx Asthma: No Hx Chronic Respiratory Disease: No Hx Diabetes: No Hx Cardiac Disease: No Hx Renal Disease: No Hx Cirrhosis: No Hx Alcoholism: Yes Hx HIV/AIDS: No Hx Splenectomy or Spleen Trauma: No Other PMH: ETOH ABUSE, BIPOLAR, schizophrenia, add, depression, chronic back pain, hep c, L ANKLE REPAIR - Social History Smoking Status: Current every day smoker Constitutional: Initial Vital Signs Temperature (C) 36.8 C 03/10/18 02:09 Heart Rate 89 03/10/18 02:09 Respiratory Rate 16 03/10/18 02:09 Blood Pressure 117/83 H 03/10/18 02:09 O2 Sat (%) 93 03/10/18 02:09 O2 Delivery Mode Room Air Allergies/Adverse Reactions: trazodone Allergy (Intermediate, Verified 03/10/18 02:11) ?extrapyramidal sxs Home Medications: Medication Instructions Recorded NK [No Known Home Meds] 01/29/18 Departure - Departure Disposition: Home, Routine, Self-Care Clinical Impression: Scabies Condition: Good Instructions: Scabies (ED) Referrals: NONE *PRIMARY CARE P,. [Primary Care Provider] - As per Instructions
[2018-03-10] MEDS ORDERED: PERMETHRIN 5% 60 GM CREAM TP ONE (02:26)
== END 2018-03-10 02:52 | disposition home or self-care (01) ==
DX: B86 Scabies (principal); F17.200 Nicotine dependence, unspecified, uncomplicated; Z59.0 Homelessness

== ENCOUNTER 2018-03-18 12:57 | Emergency (ER) | payer MEDICAID, OTHER ==
[2018-03-18] MEDS ORDERED: PERMETHRIN 5% 60 GM CREAM TP ONE (13:54)
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
[2018-03-18 15:00] VITALS: BP 132/94
--- NOTE | 2018-03-18 16:41 | ASMTCMCOM ---
CM Note CM Note Notes: Requested to assist patient w/getting a follow-up appt at [facility] for evaluation of his scabies. Pt was recently seen on 03/10/18 for same reason. This CM was able to get pt an appt at [facility] on Saturday03/24/18 at 11am (check-in at 10:45am). Pt states he plans on walking to a local store to get a new set of clothing and then going to the [facility] (he has a 3-day pass) to shower off the permethrin. Pt states he sleeps outside and doesn't want to stay [facility] (where he has been assigned through [facility]) because he doesn't want to "do all the things they want me to do in their program." Pt states he is not currently interested in stopping drinking at this time but "might be later." Pt states he will follow-up w/PC on Saturday. Pt also provided a [facility] pamphlet and strongly encouraged to call Estela Diggs RN w[facility]. Pt will fill his Keflex Rxn through his Medicaid benefits. CM available for further assistance if needed. Date Signed: 03/18/2018 04:41 PM Electronically Signed By:Sakshi Draper RN
== END 2018-03-18 14:59 | disposition home or self-care (01) ==
DX: B86 Scabies (principal); L30.8 Other specified dermatitis; F17.200 Nicotine dependence, unspecified, uncomplicated; Z59.0 Homelessness

== ENCOUNTER 2018-04-05 00:56 | Emergency (ER) | payer MEDICAID ==
--- NOTE | 2018-04-05 01:01 | EDPHY ---
H & P Time Seen by Provider: 04/05/18 01:00 HPI/ROS: HPI CHIEF COMPLAINT: Alcohol Intoxication HISTORY OF PRESENT ILLNESS: 42-year-old male, well known to myself as well as the emergency room presents emergency room in handcuffs with police escort for agitated combative behavior. The patient was found sleeping behind a convenience store. He was intoxicated alcohol became agitated with police. Police put him in handcuffs. They tried to bring him to the [facility], however became further agitated and EMS was called me was brought to the emergency room. No reported trauma. The patient is complaining of wrist pain bilaterally from his handcuffs. He is intoxicated with alcohol. He will be placed on a [facility] hold. Past Medical History: Significant medical history for alcoholism, homelessness. Daily alcohol use. Past Surgical History: Previous ankle surgery Social History: Alcohol this evening. Family History: Noncontributory ROS REVIEW OF SYSTEMS: 10 Systems were reviewed and negative with the exception of the elements mentioned in the history of present illness. Exam Constitutional Intoxicated, triage nursing summary reviewed, vital signs reviewed, Sleepy, smells of alcohol Eyes normal conjunctivae and sclera, horizontal beating nystagmus consistent acute alcohol intoxication, otherwise pupils equal and react to light HENT normal inspection, atraumatic, moist mucus membranes, no epistaxis, neck supple/ no meningismus, no raccoon eyes. Respiratory clear to auscultation bilaterally, normal breath sounds, no respiratory distress, no wheezing. Cardiovascular rate normal, regular rhythm, no murmur, no edema, distal pulses normal. Gastrointestinal soft, non-tender, no rebound, no guarding, normal bowel sounds, no distension, no pulsatile mass. Genitourinary no CVA tenderness. Musculoskeletal no midline vertebral tenderness, full range of motion, no calf swelling, no tenderness of extremities, no meningismus, good pulses, neurovascularly intact. Skin pink, warm, & dry, no rash, skin atraumatic. Neurologic sleepy, intoxicated with alcohol,, alert and oriented x 3, AAOx3, moves all 4 extremities equally, motor intact, sensory intact, CN II-XII intact , , normal vision, normal speech. Psychiatric normal mood/affect. Heme/Lymph/Immune no lymphadenopathy. Differential Diagnosis: Includes but is not limited to in a particular order acute alcohol intoxication, alcohol abuse, dehydration, electrolyte abnormality , nausea vomiting from acute alcohol intoxication Medical Decision Making: Plan for this patient breath alcohol. Monitor for worsening condition. Monitor for sobriety. Re-evaluation: Breath alcohol 225. [phone]: Patient ambulatory throughout the emergency room with a stable gait. Safe for discharge to the [facility]. Source: Patient, EMS - Medical/Surgical History Hx Asthma: No Hx Chronic Respiratory Disease: No Hx Diabetes: No Hx Cardiac Disease: No Hx Renal Disease: No Hx Cirrhosis: No Hx Alcoholism: Yes Hx HIV/AIDS: No Hx Splenectomy or Spleen Trauma: No Other PMH: ETOH ABUSE, BIPOLAR, schizophrenia, add, depression, chronic back pain, hep c, L ANKLE REPAIR - Social History Smoking Status: Current every day smoker Constitutional: Initial Vital Signs Temperature (C) 36.4 C 04/05/18 01:00 Heart Rate 101 H 04/05/18 01:00 Respiratory Rate 18 04/05/18 01:00 Blood Pressure 86/63 L 04/05/18 01:00 O2 Sat (%) 96 04/05/18 01:00 O2 Delivery Mode Room Air Allergies/Adverse Reactions: trazodone Allergy (Intermediate, Verified 04/05/18 01:03) ?extrapyramidal sxs Home Medications: Medication Instructions Recorded Cephalexin [Keflex (*)] 500 mg PO QID #40 cap 03/18/18 Departure - Departure Disposition: Home, Routine, Self-Care Clinical Impression: Alcoholic intoxication Qualifiers: Complication of substance-induced condition: uncomplicated Qualified Code(s): F10.920 - Alcohol use, unspecified with intoxication, uncomplicated Condition: Good Instructions: Abuse of Alcohol (ED), Alcohol Intoxication (ED) Referrals: NONE *PRIMARY CARE P,. [Primary Care Provider] - As per Instructions
[2018-04-05 06:44] VITALS: BP 130/88
== END 2018-04-05 06:42 | disposition home or self-care (01) ==
LOC: EDUNIT#
DX: F10.120 Alcohol abuse with intoxication, uncomplicated (principal); Y90.7 Blood alcohol level of 200-239 mg/100 ml; Z59.0 Homelessness

== ENCOUNTER 2018-04-10 21:03 | Emergency (ER) | payer MEDICAID ==
--- NOTE | 2018-04-10 21:16 | EDPHY ---
H & P Smoking Status: Current every day smoker Time Seen by Provider: 04/10/18 21:04 HPI/ROS: Chief complaint. Altered mental status HPI. 42 male here by EMS after apparently being found using alcohol, marijuana , methamphetamine. Patient has no complaints. He denies injuries open illness. No chest discomfort or trouble breathing. No abdominal. ROS 10 systems were reviewed and negative with the exception of the elements mentioned in the history of present illness (Stan Presley) Past Medical/Surgical History: Past medical history is significant for alcoholism, bipolar, schizophrenia, ADD , depression, chronic pain, hep C (Stan Presley) Social History: Single, daily smoker, recent alcohol (Stan Presley) Physical Exam: General Appearance: Alert somewhat agitated well-developed male mild distress vital signs significant heart rate 113 Eyes: Pupils equal and round no pallor or injection. ENT, Mouth: Mucous membranes are moist. Respiratory: There are no retractions, lungs are clear to auscultation. Cardiovascular: Regular rate and rhythm. Gastrointestinal: Abdomen is soft and nontender, no masses, bowel sounds normal. Neurological: Awake and alert, sensory and motor exams grossly normal. Skin: Warm and dry, no rashes. Musculoskeletal: Neck is supple nontender. Extremities symmetrical, full range of motion. Psychiatric: Oriented and agitated (Stan Presley) Constitutional: Initial Vital Signs Temperature (C) 36.8 C 04/10/18 21:06 Heart Rate 113 H 04/10/18 21:06 Respiratory Rate 20 04/10/18 21:06 Blood Pressure 147/95 H 04/10/18 21:06 O2 Sat (%) 95 04/10/18 21:06 O2 Delivery Mode Room Air Allergies/Adverse Reactions: trazodone Allergy (Intermediate, Verified 04/10/18 21:08) ?extrapyramidal sxs Home Medications: Medication Instructions Recorded Cephalexin [Keflex (*)] 500 mg PO QID #40 cap 03/18/18 Permethrin 60 gm TP ONCE #1 cream..g. 04/11/18 Medical Decision Making Procedures: Ativan by mouth (Stan Presley) Other Provider: [address] Presley pending improvement in patient's mental status changes secondary to his methamphetamine use. 0330 patient is ambulating unassisted. He is return to his baseline. He is medically cleared for discharge. He was treated for scabies last visit. Will give him a prescription for permethrin for further treatments as needed. (Bobby Vega) - Data Points Medications Given: Discontinued Medications Lorazepam (Ativan) 1 mg PO EDNOW ONE Stop: 04/10/18 21:21 Last Admin: 04/10/18 21:41 Dose: 1 mg Lorazepam (Ativan) 1 mg PO EDNOW ONE Stop: 04/10/18 22:00 Last Admin: 04/10/18 22:01 Dose: 1 mg Departure - Departure Disposition: Home, Routine, Self-Care Clinical Impression: Polysubstance abuse, Scabies Condition: Good Instructions: Scabies (ED), Polysubstance Abuse (ED) Additional Instructions: Follow up at [facility] in 2-3 days for further evaluation. Referrals: [facility],. [Clinic] - As per Instructions Prescriptions: Permethrin 60 gm TP ONCE #1 cream..g.
[2018-04-10] MEDS ORDERED: LORazepam 1 MG TAB PO ONE ×2 (21:20→21:59)
[2018-04-11 03:57] VITALS: BP 134/74
== END 2018-04-11 03:56 | disposition home or self-care (01) ==
LOC: EDUNIT#
DX: F19.10 Other psychoactive substance abuse, uncomplicated (principal); B86 Scabies; F17.200 Nicotine dependence, unspecified, uncomplicated